=== PATIENT | male | born 1970 | race Caucasian/White ===

== ENCOUNTER 2021-01-13 16:41 | Emergency (ER) | payer SELFPAY ==
--- NOTE | 2021-01-13 17:44 | EDM.PDOC ---
ED HPI GENERAL MEDICAL PROBLEM - General Chief Complaint: Respiratory Problem Stated Complaint: LOW O2 SATS Time Seen by Provider: 01/13/21 17:31 Source of Information: Reports: Patient, RN Notes Reviewed History Limitations: Reports: No Limitations - History of Present Illness INITIAL COMMENTS - FREE TEXT/NARRATIVE: Patient is a 50-year-old male who presents to the ER for evaluation of his difficulty breathing. Patient notes he has been sick for about the past 9 days. States that he has a loss of appetite, feels generalized fatigue, cough shortness of breath, but no chest pain. States that he was checking his oxygen saturations at home, they were in the low 80s. They were as low as 86% when he initially presented to the ER and was put back in the room, but as he has been resting, they have been steady at 90 to 91% on room air. He is in no visible respiratory distress at this time. Patient was unvaccinated for COVID-19, and has not been tested for COVID-19 at this time. Patient is obese, but denies any other past medical history. - Related Data Allergies Allergy/AdvReac Type Severity Reaction Status Date / Time No Known Allergies Allergy Verified 01/13/21 16:56 Home Meds: Home Meds . [No Known Home Meds] 01/13/21 [History] Past Medical History Endocrine/Metabolic History: Reports: Obesity/BMI 30+ Social & Family History - Tobacco Use Tobacco Use Status *Q: Never Tobacco User - Caffeine Use Caffeine Use: Reports: Soda - Recreational Drug Use Recreational Drug Use: No ED ROS GENERAL - Review of Systems Review Of Systems: Comprehensive ROS is negative, except as noted in HPI. ED EXAM, GENERAL - Physical Exam Exam: See Below Exam Limited By: No Limitations General Appearance: Alert, WD/WN, No Apparent Distress Respiratory/Chest: No Respiratory Distress, Lungs Clear, Normal Breath Sounds, No Accessory Muscle Use, Chest Non-Tender Cardiovascular: Normal Peripheral Pulses, Regular Rate, Rhythm, No Edema GI/Abdominal: Normal Bowel Sounds, Soft, Non-Tender, No Distention, No Mass Extremities: Normal Inspection, Normal Capillary Refill Neurological: Alert, Oriented, Normal Cognition, No Motor/Sensory Deficits Psychiatric: Normal Affect, Normal Mood Skin Exam: Warm, Dry, Intact, Normal Color, No Rash Course - Vital Signs Last Recorded V/S: Last Vital Signs Temp 99 F 01/13/21 16:53 Pulse 105 H 01/13/21 16:53 Resp 20 01/13/21 16:53 BP 170/100 H 01/13/21 16:53 Pulse Ox 90 L 01/13/21 16:53 - Orders/Labs/Meds Orders: Active Orders 24 hr Category Date Time Status Peripheral IV Care [RC] . DIRECTED Care 01/13/21 18:37 Active Vital Signs [RC] Q15M Care 01/13/21 19:31 Active Chest 1V Frontal [CR] Stat Exams 01/13/21 16:44 Taken EPINEPHrine [Adrenalin] Med 01/13/21 19:31 Active 0.3 mg IM ASDIRECTED PRN Famotidine [Pepcid] Med 01/13/21 19:31 Active 20 mg IVPUSH ASDIRECTED PRN Sodium Chloride 0.9% [Saline Flush] Med 01/13/21 18:37 Active 10 ml FLUSH ASDIRECTED PRN Sodium Chloride 0.9% [Saline Flush] Med 01/13/21 19:45 Active 30 ml FLUSH ASDIRECTED diphenhydrAMINE [Benadryl] Med 01/13/21 19:31 Active 50 mg IVPUSH ASDIRECTED PRN methylPREDNISolone Sod Succ [Solu-MEDROL] Med 01/13/21 19:31 Active 125 mg IVPUSH ASDIRECTED PRN Peripheral IV Insertion Adult [OM.PC] Routine Oth 01/13/21 18:37 Ordered Medication Orders Diphenhydramine HCl (Diphenhydramine 50 Mg/Ml Sdv) 50 mg IVPUSH ASDIRECTED PRN PRN Reason: hypersensitivity reaction Epinephrine HCl (Epinephrine 1 Mg/Ml Sdv) 0.3 mg IM ASDIRECTED PRN PRN Reason: hypersensitivity reaction Famotidine (Famotidine 20 Mg/2 Ml Sdv) 20 mg IVPUSH ASDIRECTED PRN PRN Reason: hypersensitivity reaction Methylprednisolone Sodium Succinate (Methylprednisolone Sodium Succinate 125 Mg/2 Ml Sdv) 125 mg IVPUSH ASDIRECTED PRN PRN Reason: hypersensitivity reaction Sodium Chloride (Sodium Chloride 0.9% 10 Ml Syringe) 10 ml FLUSH ASDIRECTED PRN PRN Reason: Keep Vein Open Last Admin: 01/13/21 18:50 Dose: 10 ml Documented by: OMER Sodium Chloride (Sodium Chloride 0.9% 10 Ml Syringe) 30 ml FLUSH ASDIRECTED [facility] Labs: Laboratory Tests 01/13/21 01/13/21 01/13/21 Range/Units 16:58 18:50 18:50 WBC 3.51 L (4.23-9.07) K/mm3 RBC 5.01 (4.63-6.08) M/mm3 Hgb 14.3 (13.7-17.5) gm/dl Hct 44.3 (40.1-51.0) % MCV 88.4 (79.0-92.2) fl MCH 28.5 (25.7-32.2) pg MCHC 32.3 (32.2-35.5) g/dl RDW Std Deviation 45.2 H (35.1-43.9) fL Plt Count 199 (163-337) K/mm3 MPV 9.2 L (9.4-12.3) fl Neut % (Auto) 77.2 H (34.0-67.9) % Lymph % (Auto) 10.0 L (21.8-53.1) % [place] % (Auto) 12.8 H (5.3-12.2) % Eos % (Auto) 0 L (0.8-7.0) Baso % (Auto) 0.0 L (0.1-1.2) % Neut # (Auto) 2.71 (1.78-5.38) K/mm3 Lymph # (Auto) 0.35 L (1.32-3.57) K/mm3 [place] # (Auto) 0.45 (0.30-0.82) K/mm3 Eos # (Auto) 0.00 L (0.04-0.54) K/mm3 Baso # (Auto) 0.00 L (0.01-0.08) K/mm3 Sodium 135 L (136-145) mEq/L Potassium 3.9 (3.5-5.1) mEq/L Chloride 99 (98-107) mEq/L Carbon Dioxide 25 (21-32) mEq/L Anion Gap 14.9 (5-15) BUN 19 H (7-18) mg/dL Creatinine 1.1 (0.7-1.3) mg/dL Est Cr Clr Drug Dosing 86.22 mL/min Estimated GFR (MDRD) > 60 (>60) mL/min BUN/Creatinine Ratio 17.3 (14-18) Glucose 144 H (70-99) mg/dL Calcium 7.9 L (8.5-10.1) mg/dL Total Bilirubin 0.5 (0.2-1.0) mg/dL AST 66 H (15-37) U/L ALT 50 (16-63) U/L Alkaline Phosphatase 74 (46-116) U/L C-Reactive Protein 15.3 H* (<1.0) mg/dL Total Protein 7.2 (6.4-8.2) g/dl Albumin 3.1 L (3.4-5.0) g/dl Globulin 4.1 gm/dL Albumin/Globulin Ratio 0.8 L (1-2) SARS-CoV-2 RNA (ALBERT) Positive H (NEGATIVE) Meds: Medications Generic Name Dose Route Start Last Admin Trade Name Freq PRN Reason Stop Dose Admin Diphenhydramine HCl 50 mg 01/13/21 19:31 Diphenhydramine 50 Mg/Ml Sdv IVPUSH ASDIRECTED PRN hypersensitivity reaction Epinephrine HCl 0.3 mg 01/13/21 19:31 Epinephrine 1 Mg/Ml Sdv IM ASDIRECTED PRN hypersensitivity reaction Famotidine 20 mg 01/13/21 19:31 Famotidine 20 Mg/2 Ml Sdv IVPUSH ASDIRECTED PRN hypersensitivity reaction Methylprednisolone Sodium Succinate 125 mg 01/13/21 19:31 Methylprednisolone Sodium Succinate 125 Mg/2 Ml Sdv IVPUSH ASDIRECTED PRN hypersensitivity reaction Sodium Chloride 10 ml 01/13/21 18:37 01/13/21 18:50 Sodium Chloride 0.9% 10 Ml Syringe FLUSH 10 ml ASDIRECTED PRN Administration Keep Vein Open Sodium Chloride 30 ml 01/13/21 19:45 Sodium Chloride 0.9% 10 Ml Syringe FLUSH ASDIRECTED ALEX Discontinued Medications Generic Name Dose Route Start Last Admin Trade Name Freq PRN Reason Stop Dose Admin CASIRIVIMAB/IMDEVIMAB 10 ml/ 110 mls @ 220 mls/hr 01/13/21 19:31 Sodium Chloride IV 01/13/21 20:00 ONETIME ONE SOTROVIMAB 500 mg/ Sodium 108 mls @ 216 mls/hr 01/13/21 19:51 01/13/21 20:27 Chloride IV 01/13/21 20:20 216 mls/hr ONETIME ONE Administration - Re-Assessments/Exams Free Text/Narrative Re-Assessment/Exam: 01/13/21 17:43 Patient presents to the ER for evaluation of his [id number] illness. Covid swab was obtained at time of triage, along with a chest x-ray. We have been monitoring his O2 saturations, and they have been around 90 to 91% on room air at rest while he has been in the ER. We will go ahead and continue to monitor these patient would be a candidate for monoclonal antibody therapy should his Covid screen come back positive. I spoke with the patient to provide information about Regeneron treatment. I offered them the "Patient and caregiver EUA Regeneron fact sheet" to read and review. I stated that the drug has been approved by an emergency use authorization (EUA) process and has not been fully FDA reviewed or approved. The patient meets the EUA requirements. I discussed there are other potential treatment options that are currently not FDA approved to treat COVID-19. I did offer an opportunity to ask questions and all questions were answered. The patient voiced understanding and agreed to proceed with the treatment. 01/13/21 19:29 Patient CBC shows a mildly low white count which is typical for viral disease. CMP is fairly unremarkable, CRP is elevated at 12.1. 01/13/21 20:10 Was made aware by nursing staff that the patient was place on oxygen 2L [place]. We did take him back off O2 and his RA sats have been around 90-91%; we will go ahead with the monoclonal antibody therapy at this time. Departure - Departure Time of Disposition: 19:30 Disposition: Home, Self-Care 01 Condition: Good Clinical Impression: COVID-19 - Discharge Information *PRESCRIPTION DRUG MONITORING PROGRAM REVIEWED*: No *COPY OF PRESCRIPTION DRUG MONITORING REPORT IN PATIENT BECKA: No Instructions: COVID-19 Frequently Asked Questions, 10 Things You Can Do to Manage Your COVID-19 Symptoms at Home - [facility] (10/17/2020) Referrals: PCP,None [Primary Care Provider] - Forms: ED Department Discharge Additional Instructions: You were seen in the ER today for ongoing and/or worsening respiratory symptoms. Your chest x-ray showed no signs of pneumonia at this time. Your oxygen levels were acceptable at 91% on room air upon discharge from this ER. You were given IV monoclonal antibody therapy at today's visit, this medication is thought to work by making you a little less sick, and helps to decrease the length of time that you are sick. Please try to increase your oral fluid intake, and eat multiple small meals throughout the day, to keep yourself healthy. You need to keep yourself nourished in order to fight off this disease. You can try a liquid diet like gatorade/powerade as well to get your electrolytes. You may take 500 mg Tylenol every hours 6 hours for pain/fever relief. Do not exceed 4000 mg Tylenol in a 24-hour time span. However, running a fever is your body's natural response to illness, and it allows the body to develop antibodies to disease, we are recommending trying to limit the use of Tylenol as much as possible to allow your body's natural immune response. Recommend you obtain a pulse oximeter and monitor your oxygen levels at home, you should place the monitor on your finger, and sit in a calm, quiet position for a few minutes and then record the number that is on the screen. If this consistently below 90% on room air without movement, this would be cause for concern to come back to the hospital for further management of your COVID-19 disease. Please follow all guidance set forth from [facility], regarding isolation purposes for your disease process. General isolation times are 10 days from when you started being symptomatic. Sepsis Event Note (ED) - Evaluation Sepsis Screening Result: No Definite Risk - Focused Exam Vital Signs: Vital Signs Temp Pulse Resp BP Pulse Ox 01/13/21 16:53 99 F 105 H 20 170/100 H 90 L - My Orders Last 24 Hours: My Active Orders 01/13/21 16:44 Chest 1V Frontal [CR] Stat 01/13/21 18:37 Peripheral IV Care [RC] . DIRECTED Sodium Chloride 0.9% [Saline Flush] 10 ml FLUSH ASDIRECTED PRN Peripheral IV Insertion Adult [OM.PC] Routine 01/13/21 19:31 Vital Signs [RC] Q15M EPINEPHrine [Adrenalin] 0.3 mg IM ASDIRECTED PRN Famotidine [Pepcid] 20 mg IVPUSH ASDIRECTED PRN diphenhydrAMINE [Benadryl] 50 mg IVPUSH ASDIRECTED PRN methylPREDNISolone Sod Succ [Solu-MEDROL] 125 mg IVPUSH ASDIRECTED PRN 01/13/21 19:45 Sodium Chloride 0.9% [Saline Flush] 30 ml FLUSH ASDIRECTED - Assessment/Plan Last 24 Hours: My Active Orders 01/13/21 16:44 Chest 1V Frontal [CR] Stat 01/13/21 18:37 Peripheral IV Care [RC] . DIRECTED Sodium Chloride 0.9% [Saline Flush] 10 ml FLUSH ASDIRECTED PRN Peripheral IV Insertion Adult [OM.PC] Routine 01/13/21 19:31 Vital Signs [RC] Q15M EPINEPHrine [Adrenalin] 0.3 mg IM ASDIRECTED PRN Famotidine [Pepcid] 20 mg IVPUSH ASDIRECTED PRN diphenhydrAMINE [Benadryl] 50 mg IVPUSH ASDIRECTED PRN methylPREDNISolone Sod Succ [Solu-MEDROL] 125 mg IVPUSH ASDIRECTED PRN 01/13/21 19:45 Sodium Chloride 0.9% [Saline Flush] 30 ml FLUSH ASDIRECTED
[2021-01-13] MEDS ORDERED: Sodium Chloride 0.9% 10 ML Syringe FLUSH PRN (18:37)
[2021-01-13] MEDS ORDERED: methylPREDNISolone Sodium Succinate 125 MG/2 ML SDV IVPUSH PRN (19:31)
[2021-01-13] MEDS ORDERED: diphenhydrAMINE 50 MG/ML SDV IVPUSH PRN (19:31)
[2021-01-13] MEDS ORDERED: EPINEPHrine 1 MG/ML SDV IM PRN (19:31)
[2021-01-13] MEDS ORDERED: Famotidine 20 MG/2 ML SDV IVPUSH PRN (19:31)
[2021-01-13] MEDS ORDERED: Sodium Chloride 0.9% 10 ML Syringe FLUSH SCH (19:45)
--- NOTE | 2021-01-14 07:34 | CR ---
Chest: Frontal view of the chest was obtained. Comparison: No prior chest imaging is available. Heart size and mediastinum are normal. Minimal density within the left midlung is seen. Lungs otherwise are clear. Bony structures show nothing acute. Impression: 1. Minimal density with the left midlung. Difficult to exclude minimal area of pneumonia or an area of atelectasis. 2. Other portions of the frontal chest x-ray appear within normal limits. Diagnostic code #3
== END 2021-01-13 22:07 | disposition home or self-care (01) ==
LOC: JD.ED 16:41
DX: U07.1 COVID-19 (principal)
CPT/HCPCS: 36415; 71045; 80053; 85025; 86140; 87635; 99285; M0247; Q0247; U0002

== ENCOUNTER 2021-01-14 09:13 | Emergency (ER) | payer SELFPAY ==
--- NOTE | 2021-01-14 09:58 | EDM.PDOC ---
ED HPI GENERAL MEDICAL PROBLEM - General Chief Complaint: Respiratory Problem Stated Complaint: SOB Time Seen by Provider: 01/14/21 09:31 Source of Information: Reports: Patient History Limitations: Reports: No Limitations - History of Present Illness INITIAL COMMENTS - FREE TEXT/NARRATIVE: 50-year-old male presents the emergency department with complaints of increased shortness of breath and low O2 saturations. Patient was seen in the emergency department yesterday with Covid positive symptoms and shortness of breath. He did receive monoclonal antibodies while in the emergency department. He states he went home. States that overall his symptoms have resolved. He denies any generalized body aches, headache, nausea, vomiting or diarrhea. He states his appetite is resolving. However he states he is feeling more short of breath. Checked his oxygen saturations at home and they were in the 70s so he elected to come to the emergency department. Of note, the patient is not a smoker. He states he has no past medical history. He does not have a primary care provider. He did not receive his Covid vaccinations. - Related Data Allergies Allergy/AdvReac Type Severity Reaction Status Date / Time No Known Allergies Allergy Verified 01/14/21 09:33 Home Meds: Home Meds dexAMETHasone [Dexamethasone] 6 mg PO DAILY #14 tablet 01/14/21 [Rx] Past Medical History Endocrine/Metabolic History: Reports: Obesity/BMI 30+ - Infectious Disease History Infectious Disease History: Reports: Novel Coronavirus Social & Family History - Tobacco Use Tobacco Use Status *Q: Never Tobacco User - Caffeine Use Caffeine Use: Reports: Soda ED ROS GENERAL - Review of Systems Review Of Systems: Comprehensive ROS is negative, except as noted in HPI. ED EXAM, GENERAL - Physical Exam Exam: See Below Exam Limited By: No Limitations General Appearance: Alert, WD/WN, No Apparent Distress Ears: Normal External Exam, Hearing Grossly Normal Nose: Normal Inspection Throat/Mouth: Normal Inspection, Normal Lips, Normal Voice, No Airway Compromise Head: Atraumatic Neck: Normal Inspection, Supple Respiratory/Chest: No Accessory Muscle Use, Chest Non-Tender, Respiratory Distress, Decreased Breath Sounds, Crackles (Crackles noted to the bilateral bases) Cardiovascular: Normal Peripheral Pulses, Regular Rate, Rhythm, No Edema, No Murmur Peripheral Pulses: 2+: Radial (L), Radial (R) GI/Abdominal: Normal Bowel Sounds, Soft, Non-Tender, No Distention (Male) Exam: Deferred Rectal (Males) Exam: Deferred Back Exam: Normal Inspection Extremities: Normal Inspection Neurological: Alert, Oriented, Normal Cognition Psychiatric: Normal Affect, Normal Mood Skin Exam: Warm, Dry, Intact, Normal Color, No Rash Lymphatic: No Adenopathy Course - Vital Signs Text/Narrative:: As stated above, patient presents with decreasing O2 saturations as a result of Covid. He did receive monoclonal antibodies yesterday while in the emergency department. Patient's O2 saturations in the emergency department on room air were 77%. Nursing staff did apply O2 at 5 L per nasal cannula and O2 saturations are now 92 to 93%. Physical exam reveals diminished lung sounds with fine crackles noted to the bilateral bases. Exam is otherwise unremarkable. Will obtain lab studies to include CBC, CMP, magnesium, D-dimer and a C-reactive protein. We will repeat chest x-ray. Last Recorded V/S: Last Vital Signs Temp 98.2 F 01/14/21 09:30 Pulse 97 01/14/21 09:30 Resp 24 H 01/14/21 09:30 BP 134/81 01/14/21 09:30 Pulse Ox 77 L 01/14/21 09:30 - Orders/Labs/Meds Labs: Laboratory Tests 01/14/21 01/14/21 01/14/21 Range/Units 10:15 10:15 10:15 WBC 4.34 (4.23-9.07) K/mm3 RBC 4.89 (4.63-6.08) M/mm3 Hgb 14.1 (13.7-17.5) gm/dl Hct 43.3 (40.1-51.0) % MCV 88.5 (79.0-92.2) fl MCH 28.8 (25.7-32.2) pg MCHC 32.6 (32.2-35.5) g/dl RDW Std Deviation 45.6 H (35.1-43.9) fL Plt Count 223 (163-337) K/mm3 MPV 9.0 L (9.4-12.3) fl Neut % (Auto) 78.2 H (34.0-67.9) % Lymph % (Auto) 8.5 L (21.8-53.1) % [place] % (Auto) 13.1 H (5.3-12.2) % Eos % (Auto) 0 L (0.8-7.0) Baso % (Auto) 0.0 L (0.1-1.2) % Neut # (Auto) 3.39 (1.78-5.38) K/mm3 Lymph # (Auto) 0.37 L (1.32-3.57) K/mm3 [place] # (Auto) 0.57 (0.30-0.82) K/mm3 Eos # (Auto) 0.00 L (0.04-0.54) K/mm3 Baso # (Auto) 0.00 L (0.01-0.08) K/mm3 D-Dimer, Quantitative 0.57 H (0.19-0.50) mg/L Sodium 131 L (136-145) mEq/L Potassium 3.8 (3.5-5.1) mEq/L Chloride 96 L (98-107) mEq/L Carbon Dioxide 25 (21-32) mEq/L Anion Gap 13.8 (5-15) BUN 19 H (7-18) mg/dL Creatinine 1.0 (0.7-1.3) mg/dL Est Cr Clr Drug Dosing TNP Estimated GFR (MDRD) > 60 (>60) mL/min BUN/Creatinine Ratio 19.0 H (14-18) Glucose 157 H (70-99) mg/dL Calcium 7.6 L (8.5-10.1) mg/dL Magnesium 2.0 (1.8-2.4) mg/dL Total Bilirubin 0.5 (0.2-1.0) mg/dL AST 92 H (15-37) U/L ALT 67 H (16-63) U/L Alkaline Phosphatase 75 (46-116) U/L C-Reactive Protein 17.8 H* (<1.0) mg/dL Total Protein 7.0 (6.4-8.2) g/dl Albumin 3.0 L (3.4-5.0) g/dl Globulin 4.0 gm/dL Albumin/Globulin Ratio 0.8 L (1-2) Meds: Medications Discontinued Medications Generic Name Dose Route Start Last Admin Trade Name Freq PRN Reason Stop Dose Admin Dexamethasone 6 mg 01/14/21 11:14 Dexamethasone 4 Mg Tab PO 01/14/21 11:15 ONETIME ONE - Re-Assessments/Exams Free Text/Narrative Re-Assessment/Exam: 01/14/21 11:01 Radiologist impression frontal view of the chest: 1. Mild areas of increased density within both lungs most likely due to stable Covid pneumonia. 2. Minimal atelectasis within the left midlung. 01/14/21 11:04 Hematology reveals a WBC of 4.34, hemoglobin 14.1, hematocrit 43.3, platelet cou nt 233 Coagulation reveals a D-dimer of 0.57 Chemistry reveals a sodium of 131, potassium 3.8, chloride 96, anion gap 13.8, BUN 19, creatinine 1.0, glucose 157, calcium 7.6, AST 92, ALT 67, C-reactive protein 17.8 Patient will be sent home on home oxygen. I did discuss the case with Dr. Palacios, our hospitalist, and he recommends sending the patient home on dexamethasone 10-day course as well. 01/14/21 11:24 Discussed this plan with the patient and he is agreeable. Departure - Departure Time of Disposition: 11:25 Disposition: Home, Self-Care 01 Condition: Good Clinical Impression: COVID-19, Hypoxemia, Pneumonia due to COVID-19 virus - Discharge Information Prescriptions: dexAMETHasone [Dexamethasone] 6 mg PO DAILY #14 tablet Referrals: PCP,None [Primary Care Provider] - Forms: ED Department Discharge Additional Instructions: You were seen in the ER today for evaluation of low oxygen levels due to Covid. Lab studies were essentially unremarkable however your inflammatory markers were elevated. Your oxygen levels did improve with oxygen. Chest x-ray does show pneumonia consistent with Covid however as discussed this is viral and cannot be treated with antibiotics. You were given a steroid medication while in the emergency department to decrease inflammation associated with the Covid virus. I have sent a prescription for this medication called dexamethasone to [facility]. You will need to take 6 mg daily starting tomorrow for 9 days. You will also need to follow-up with a primary care provider once your 10 days of isolation have been completed. They will reevaluate your oxygen needs. A list of providers has been sent with your discharge papers. Call to schedule your appointment today. Should your condition worsen or change, do not hesitate returning to the emergency department. Sepsis Event Note (ED) - Evaluation Sepsis Screening Result: No Definite Risk - Focused Exam Vital Signs: Vital Signs Temp Pulse Resp BP Pulse Ox 01/14/21 09:30 98.2 F 97 24 H 134/81 77 L
--- NOTE | 2021-01-14 10:27 | CR ---
Chest: Frontal view of the chest was obtained. Comparison: Prior chest x-ray of 01/13/21. Slight density is noted within the right lung base as well as minimal density within the right upper lung. Density is also noted within the left mid lung. Findings are felt to be fairly stable from prior exam. Minimal atelectasis is seen within the left mid lung peripherally. Heart size and mediastinum are normal. Bony structures are unchanged. Impression: 1. Mild areas of increased density within both lungs most likely due to stable COVID pneumonia. 2. Minimal atelectasis within the left midlung. Diagnostic code #3
[2021-01-14] MEDS ORDERED: Dexamethasone 4 MG Tab PO ONE (11:14)
== END 2021-01-14 12:30 | disposition home or self-care (01) ==
LOC: JD.ED 09:13
DX: U07.1 COVID-19 (principal); J12.82 Pneumonia due to coronavirus disease 2019; R09.02 Hypoxemia; E66.9 Obesity, unspecified
CPT/HCPCS: 36415; 71045; 80053; 83735; 85025; 85379; 86140; 99285; J8540

== ENCOUNTER 2021-01-22 11:41 | Inpatient (IN) | payer SELFPAY ==
[2021-01-22] MEDS ORDERED: FLU Vacc QS2021-22 36MOS UP/PF 60 MCG/0.5 ML Syringe IM ONE (12:30)
[2021-01-22] MEDS ORDERED: Ondansetron 4 MG/2 ML SDV IV PRN (13:31)
[2021-01-22] MEDS ORDERED: Acetaminophen 325 MG Tab PO PRN (13:31)
--- NOTE | 2021-01-22 13:44 | PCM.HP.2 ---
H&P History of Present Illness - General Date of Service: 01/22/21 Admit Problem/Dx: Admission Diagnosis/Problem Admission Diagnosis/Problem Hypoxia - History of Present Illness Initial Comments - Free Text/Narative: 50-year-old male who first presented to the emergency department on January 13 with 9 days of symptoms of shortness of breath and fatigue was diagnosed with COVID-19 and given monoclonal antibodies. He did return on the to the emergency department and had worsening shortness of breath. He denied any fever, chills, nausea, vomiting, body aches, or headache. Denied any changes in bowels. On the he was found to be hypoxemic with saturations in the 70s and he was started on 5 L of oxygen via nasal cannula. He was started on dexamethasone and sent home on oxygen because we did not have any room in the hospital. Patient presented today to the Covid clinic with worsening shortness of breath and fatigue. No other symptoms, but he did state his oxygen saturations have been as low as the 70s over the last week. He was found to have an oxygen saturation of 85% on 5 L and arrangements were made to admit the patient to the hospital. When he arrived at the floor he was put on high flow nasal cannula with a flow rate of 45 L at 60% FiO2. Patient states he is feeling better with the high flow nasal cannula. Patient also had a CTA of the chest because of worsening D-dimer. CT of the chest showed worsening parenchymal densities within both sides of the chest compatible with worsening COVID pneumonia. No pulmonary embolism seen. Laboratory findings in the emergency department included WBC of 19, hemoglobin 15.6, platelets 589, D-dimer 1.1, sodium 134, potassium 4.8, bicarb 25, BUN 24, creatinine 1.0, glucose 208, ferritin 2547, AST 39, ALT 142, C-reactive protein 13.9, albumin 2.5 - Related Data Allergies/Adverse Reactions: Allergies Allergy/AdvReac Type Severity Reaction Status Date / Time No Known Allergies Allergy Verified 01/22/21 12:01 Home Medications: Home Meds dexAMETHasone [Dexamethasone] 6 mg PO DAILY #14 tablet 01/14/21 [Rx] Past Medical History Neurological History: Reports: Migraines Endocrine/Metabolic History: Reports: Obesity/BMI 30+ - Infectious Disease History Infectious Disease History: Reports: Novel Coronavirus Social & Family History - Tobacco Use Tobacco Use Status *Q: Never Tobacco User - Caffeine Use Caffeine Use: Reports: Soda - Recreational Drug Use Recreational Drug Use: No H&P Review of Systems - Review of Systems: Review Of Systems: Comprehensive ROS is negative, except as noted in HPI. Exam - Exam Exam: See Below - Vital Signs Vital Signs: Last Vital Signs Temp 98.2 F 01/22/21 11:56 Pulse 103 H 01/22/21 11:56 Resp 22 H 01/22/21 11:56 BP 113/80 01/22/21 11:56 Pulse Ox 93 L 01/22/21 12:12 Weight: 212 lb 3.2 oz - Exam Quality Assessment: Supplemental Oxygen General: Alert, Oriented, 4 HEENT: Conjunctiva Clear, EOMI, Hearing Intact, Mucosa Moist & [place] Neck: Supple, Trachea Midline, 2 Lungs: Crackles (Throughout both lung linares worse in the bases). No: Normal Respiratory Effort (Increased respiratory rate) Cardiovascular: Regular Rhythm, Tachycardia GI/Abdominal Exam: Normal Bowel Sounds, Soft, Non-Tender, No Organomegaly, No Distention, No Abnormal Bruit, No Mass Extremities: Normal Inspection, Normal Range of Motion, Non-Tender, No Pedal Edema, Normal Capillary Refill Skin: Warm, Dry, Intact Neuro Extensive - Mental Status: Alert, Oriented x3, Normal Mood/Affect, Normal Cognition, Memory Intact Neuro Extensive - Motor, Sensory, Reflexes: CN II-XII Intact Psychiatric: Alert, Normal Affect, Normal Mood Sepsis Event Note - Evaluation Sepsis Screening Result: No Definite Risk - Focused Exam Vital Signs: Vital Signs Temp Pulse Resp BP Pulse Ox Pulse Ox 01/22/21 12:12 93 L 01/22/21 11:56 98.2 F 103 H 22 H 113/80 89 L - Problem List (1) Hypoxemia SNOMED Code(s): 481295148 ICD Code: R09.02 - HYPOXEMIA Status: Acute Current Visit: No (2) Pneumonia due to COVID-19 virus SNOMED Code(s): 211439598517993901 ICD Code: U07.1 - COVID-19; J12.82 - PNEUMONIA DUE TO CORONAVIRUS DISEASE 2019 Status: Acute Current Visit: No Problem List Initiated/Reviewed/Updated: Yes Orders Last 24hrs: Active Orders 24 hr Category Date Time Status Patient Status [ADT] Routine ADT 01/22/21 12:09 Active Incentive Spirometry [RT Incentive Spirometry] [RC] Care 01/22/21 12:12 Active ASDIRECTED Oxygen Therapy [RC] PRN Care 01/22/21 13:32 Ordered Up With Assistance [RC] ASDIRECTED Care 01/22/21 13:31 Ordered VTE/DVT Education [RC] PER UNIT ROUTINE Care 01/22/21 13:32 Ordered Vaccine to be Administered/Admin Charge [RC] ASDIRECTED Care 01/22/21 12:23 Active Vital Signs [RC] Q4H Care 01/22/21 13:32 Ordered Respiratory Care Assess and Treatment [CONS] Routine Cons 01/22/21 13:31 Ordered Regular Diet [DIET] Diet 01/22/21 Dinner Ordered C-REACTIVE PROTEIN [CHEM] AM Lab 01/23/21 05:11 Ordered CBC WITH AUTO DIFF [HEME] AM Lab 01/23/21 05:11 Ordered CMP [COMPREHENSIVE METABOLIC PN,CMP] [CHEM] AM Lab 01/23/21 05:11 Ordered DD [D-DIMER QUANTITATIVE] [COAG] AM Lab 01/23/21 05:11 Ordered MAGNESIUM [CHEM] AM Lab 01/23/21 05:11 Ordered PHOSPHORUS [CHEM] AM Lab 01/23/21 05:11 Ordered Acetaminophen [TylenoL] Med 01/22/21 13:31 Ordered 650 mg PO Q4H PRN Enoxaparin [Lovenox] Med 01/23/21 09:00 Ordered 40 mg SUBCUT DAILY Ondansetron [Zofran] Med 01/22/21 13:31 Ordered 4 mg IV Q6H PRN dexAMETHasone Med 01/22/21 13:45 Ordered 6 mg PO Q24H Resuscitation Status Routine Resus Stat 01/22/21 13:31 Ordered Medication Orders Acetaminophen (Acetaminophen 325 Mg Tab) 650 mg PO Q4H PRN PRN Reason: Pain (Mild 1-3)/fever Dexamethasone (Dexamethasone 4 Mg Tab) 6 mg PO Q24H ALEX Stop: 01/24/21 13:46 Enoxaparin Sodium (Enoxaparin 40 Mg/0.4 Ml Syringe) 40 mg SUBCUT DAILY ALEX Ondansetron HCl (Ondansetron 4 Mg/2 Ml Sdv) 4 mg IV Q6H PRN PRN Reason: Nausea/Vomiting Assessment/Plan Comment:: 50-year-old male with 10+ day history of shortness of breath and COVID-19. COVID-19 pneumonia Respiratory failure * Symptoms first started approximately on January 04 * Given monoclonal antibodies on January 13 * Sent home on 5 L of oxygen per minute and dexamethasone on January 14 * Returns today with low oxygen saturations while on 5 L/min of oxygen and dexamethasone. * WBC of 19, hemoglobin 15.6, platelets 589, D-dimer 1.1, CRP 13.9, alb 2.5 * He is outside the window of benefit for remdesivir. * Currently on high flow nasal cannula 45 L at 60% FiO2 * No prior medical problems and a non-smoker. * Leukocytosis likely secondary to steroid effect. CTA did not demonstrate any consolidated areas suggestive of bacterial infection * Thrombocytosis likely inflammatory reaction Plan * Admit to medical floor * Continue dexamethasone * Offer Actemra * High flow nasal cannula to keep SPO2 between 88 and 94% * Routine COVID-19 treatment to include albuterol, DuoNeb, I-S, proning, respiratory therapy * Follow CBC, CMP, mag, Phos, CRP, and D-dimer * VTE prophylaxis with Lovenox * CODE STATUS: Full code - Mortality Measure Prognosis:: Good
[2021-01-22] MEDS ORDERED: Benzonatate 100 MG Cap PO PRN (14:17)
[2021-01-22] MEDS ORDERED: Acetaminophen/Codeine 300-30 MG Tab PO PRN (14:17)
[2021-01-22] MEDS: Dexamethasone 4 MG Tab PO SCH (14:31)
--- NOTE | 2021-01-22 17:53 | PCM.EKG ---
#1 Interpretation EKG Date: 01/22/21 Time: 16:29 Rhythm: NSR Rate (Beats/Min): 91 [place]: Normal P-Wave: Present QRS: Normal ST-T: Normal QT: Normal Comparison: NA - No Prior EKG (Normal EKG)
[2021-01-22] MEDS: Albuterol/Ipratropium 3.0-0.5 MG/3 ML Neb Soln NEB PRN (20:30)
[2021-01-23] MEDS: Enoxaparin 40 MG/0.4 ML Syringe SUBCUT SCH (09:17)
[2021-01-23] MEDS ORDERED: Insulin Lispro 100 Unit/ML 3 ML KwikPen SUBCUT PRN (10:22)
[2021-01-23] MEDS: Dexamethasone 4 MG Tab PO SCH (15:01)
--- NOTE | 2021-01-23 15:54 | PCM.PN ---
- General Info Date of Service: 01/23/21 Admission Dx/Problem (Free Text): Admission Diagnosis/Problem Admission Diagnosis/Problem Hypoxia Subjective Update: Patient is feeling much better. He has his appetite back and is less short of breath. Functional Status: Reports: Pain Controlled - Review of Systems General: Reports: No Symptoms HEENT: Reports: No Symptoms Pulmonary: Reports: No Symptoms Cardiovascular: Reports: No Symptoms Gastrointestinal: Reports: No Symptoms Musculoskeletal: Reports: No Symptoms - Patient Data Vitals - Most Recent: Last Vital Signs Temp 97.5 F 01/23/21 12:36 Pulse 86 01/23/21 12:36 Resp 22 H 01/23/21 12:36 BP 116/74 01/23/21 12:36 Pulse Ox 92 L 01/23/21 15:25 Weight - Most Recent: 213 lb 6.4 oz I&O - Last 24 Hours: Intake & Output 01/23/21 01/23/21 01/23/21 06:59 14:59 22:59 Intake Total 700 120 Output Total 1600 Balance -900 120 Lab Results Last 24 Hours: Laboratory Results - last 24 hr 01/23/21 01/23/21 01/23/21 Range/Units 06:34 06:34 06:34 WBC 12.20 H (4.23-9.07) K/mm3 RBC 4.76 (4.63-6.08) M/mm3 Hgb 13.6 L D (13.7-17.5) gm/dl Hct 42.4 (40.1-51.0) % MCV 89.1 (79.0-92.2) fl MCH 28.6 (25.7-32.2) pg MCHC 32.1 L (32.2-35.5) g/dl RDW Std Deviation 44.1 H (35.1-43.9) fL Plt Count 446 H D (163-337) K/mm3 MPV 9.4 (9.4-12.3) fl Neut % (Auto) 86.9 H (34.0-67.9) % Lymph % (Auto) 4.8 L (21.8-53.1) % [place] % (Auto) 7.0 (5.3-12.2) % Eos % (Auto) 0.2 L (0.8-7.0) Baso % (Auto) 0.1 (0.1-1.2) % Neut # (Auto) 10.60 H (1.78-5.38) K/mm3 Lymph # (Auto) 0.59 L (1.32-3.57) K/mm3 [place] # (Auto) 0.86 H (0.30-0.82) K/mm3 Eos # (Auto) 0.02 L (0.04-0.54) K/mm3 Baso # (Auto) 0.01 (0.01-0.08) K/mm3 D-Dimer, Quantitative 0.92 H (0.19-0.50) mg/L Sodium 132 L (136-145) mEq/L Potassium 4.2 (3.5-5.1) mEq/L Chloride 100 (98-107) mEq/L Carbon Dioxide 24 (21-32) mEq/L Anion Gap 12.2 (5-15) BUN 24 H (7-18) mg/dL Creatinine 0.8 (0.7-1.3) mg/dL Est Cr Clr Drug Dosing 125.58 mL/min Estimated GFR (MDRD) > 60 (>60) mL/min BUN/Creatinine Ratio 30.0 H (14-18) Glucose 253 H (70-99) mg/dL POC Glucose (70-99) mg/dL Hemoglobin A1c ( - 5.6) % Calcium 8.1 L (8.5-10.1) mg/dL Phosphorus 3.8 (2.6-4.7) mg/dL Magnesium 2.5 H (1.8-2.4) mg/dL Total Bilirubin 0.5 (0.2-1.0) mg/dL AST 25 (15-37) U/L ALT 115 H (16-63) U/L Alkaline Phosphatase 81 (46-116) U/L C-Reactive Protein 18.3 H* (<1.0) mg/dL Total Protein 6.3 L (6.4-8.2) g/dl Albumin 2.1 L (3.4-5.0) g/dl Globulin 4.2 gm/dL Albumin/Globulin Ratio 0.5 L (1-2) 01/23/21 01/23/21 Range/Units 06:34 11:56 WBC (4.23-9.07) K/mm3 RBC (4.63-6.08) M/mm3 Hgb (13.7-17.5) gm/dl Hct (40.1-51.0) % MCV (79.0-92.2) fl MCH (25.7-32.2) pg MCHC (32.2-35.5) g/dl RDW Std Deviation (35.1-43.9) fL Plt Count (163-337) K/mm3 MPV (9.4-12.3) fl Neut % (Auto) (34.0-67.9) % Lymph % (Auto) (21.8-53.1) % [place] % (Auto) (5.3-12.2) % Eos % (Auto) (0.8-7.0) Baso % (Auto) (0.1-1.2) % Neut # (Auto) (1.78-5.38) K/mm3 Lymph # (Auto) (1.32-3.57) K/mm3 [place] # (Auto) (0.30-0.82) K/mm3 Eos # (Auto) (0.04-0.54) K/mm3 Baso # (Auto) (0.01-0.08) K/mm3 D-Dimer, Quantitative (0.19-0.50) mg/L Sodium (136-145) mEq/L Potassium (3.5-5.1) mEq/L Chloride (98-107) mEq/L Carbon Dioxide (21-32) mEq/L Anion Gap (5-15) BUN (7-18) mg/dL Creatinine (0.7-1.3) mg/dL Est Cr Clr Drug Dosing mL/min Estimated GFR (MDRD) (>60) mL/min BUN/Creatinine Ratio (14-18) Glucose (70-99) mg/dL POC Glucose 450 H* (70-99) mg/dL Hemoglobin A1c 8.0 H ( - 5.6) % Calcium (8.5-10.1) mg/dL Phosphorus (2.6-4.7) mg/dL Magnesium (1.8-2.4) mg/dL Total Bilirubin (0.2-1.0) mg/dL AST (15-37) U/L ALT (16-63) U/L Alkaline Phosphatase (46-116) U/L C-Reactive Protein (<1.0) mg/dL Total Protein (6.4-8.2) g/dl Albumin (3.4-5.0) g/dl Globulin gm/dL Albumin/Globulin Ratio (1-2) Med Orders - Current: Current Medications Acetaminophen (Acetaminophen 325 Mg Tab) 650 mg PO Q4H PRN PRN Reason: Pain (Mild 1-3)/fever Acetaminophen/Codeine Phosphate (Acetaminophen/Codeine 300-30 Mg Tab) 1 tab PO Q4H PRN PRN Reason: Cough Albuterol (Albuterol 6.7 Gm Inhaler) 0 gm INH Q2H PRN PRN Reason: sob/wheezing Albuterol/Ipratropium (Albuterol/Ipratropium 3.0-0.5 Mg/3 Ml Neb Soln) 3 ml NEB Q4HRRT PRN PRN Reason: sob/wheezing Last Admin: 01/22/21 20:30 Dose: 3 ml Documented by: Benzonatate (Benzonatate 100 Mg Cap) 200 mg PO Q8H PRN PRN Reason: Cough Dexamethasone (Dexamethasone 4 Mg Tab) 6 mg PO Q24H ALEX Stop: 01/24/21 14:01 Last Admin: 01/23/21 15:01 Dose: 6 mg Documented by: Enoxaparin Sodium (Enoxaparin 40 Mg/0.4 Ml Syringe) 40 mg SUBCUT DAILY [facility] Last Admin: 01/23/21 09:17 Dose: 40 mg Documented by: Insulin Human Lispro (Insulin Lispro 100 Unit/Ml 3 Ml Kwikpen) 0 unit SUBCUT QIDACANDBED [facility]; Protocol Ondansetron HCl (Ondansetron 4 Mg/2 Ml Sdv) 4 mg IV Q6H PRN PRN Reason: Nausea/Vomiting Discontinued Medications Tocilizumab 800 mg/ Sodium (Chloride) 100 mls @ 100 mls/hr IV ONETIME ONE Stop: 01/23/21 10:59 Last Admin: 01/23/21 11:49 Dose: 100 mls/hr Documented by: Influenza Virus Vaccine (Flu Vacc [id number] 36mos Up/Pf 60 Mcg/0.5 Ml Syringe) 60 mcg IM .ONCE ONE Stop: 01/22/21 12:31 Insulin Human Lispro (Insulin Lispro 100 Unit/Ml 3 Ml Kwikpen) 0 unit SUBCUT QIDACANDBED PRN; Protocol PRN Reason: Hyperglycemia Last Admin: 01/23/21 12:17 Dose: 12 unit Documented by: - Exam Quality Assessment: Supplemental Oxygen General: Alert, Oriented HEENT: Pupils Equal, Mucous Membr. Moist/[place] Lungs: Crackles (Bibasilar). No: Normal Respiratory Effort (Increased respiratory rate) Cardiovascular: Regular Rate, Regular Rhythm GI/Abdominal Exam: Normal Bowel Sounds, Soft, Non-Tender, No Distention Extremities: Normal Inspection, Normal Range of Motion, Non-Tender, No Pedal Edema, Normal Capillary Refill Skin: Warm, Dry, Intact Psy/Mental Status: Alert, Normal Affect, Normal Mood - Patient Data Lab Results Last 24 hrs: Laboratory Results - last 24 hr 01/23/21 01/23/21 01/23/21 Range/Units 06:34 06:34 06:34 WBC 12.20 H (4.23-9.07) K/mm3 RBC 4.76 (4.63-6.08) M/mm3 Hgb 13.6 L D (13.7-17.5) gm/dl Hct 42.4 (40.1-51.0) % MCV 89.1 (79.0-92.2) fl MCH 28.6 (25.7-32.2) pg MCHC 32.1 L (32.2-35.5) g/dl RDW Std Deviation 44.1 H (35.1-43.9) fL Plt Count 446 H D (163-337) K/mm3 MPV 9.4 (9.4-12.3) fl Neut % (Auto) 86.9 H (34.0-67.9) % Lymph % (Auto) 4.8 L (21.8-53.1) % [place] % (Auto) 7.0 (5.3-12.2) % Eos % (Auto) 0.2 L (0.8-7.0) Baso % (Auto) 0.1 (0.1-1.2) % Neut # (Auto) 10.60 H (1.78-5.38) K/mm3 Lymph # (Auto) 0.59 L (1.32-3.57) K/mm3 [place] # (Auto) 0.86 H (0.30-0.82) K/mm3 Eos # (Auto) 0.02 L (0.04-0.54) K/mm3 Baso # (Auto) 0.01 (0.01-0.08) K/mm3 D-Dimer, Quantitative 0.92 H (0.19-0.50) mg/L Sodium 132 L (136-145) mEq/L Potassium 4.2 (3.5-5.1) mEq/L Chloride 100 (98-107) mEq/L Carbon Dioxide 24 (21-32) mEq/L Anion Gap 12.2 (5-15) BUN 24 H (7-18) mg/dL Creatinine 0.8 (0.7-1.3) mg/dL Est Cr Clr Drug Dosing 125.58 mL/min Estimated GFR (MDRD) > 60 (>60) mL/min BUN/Creatinine Ratio 30.0 H (14-18) Glucose 253 H (70-99) mg/dL POC Glucose (70-99) mg/dL Hemoglobin A1c ( - 5.6) % Calcium 8.1 L (8.5-10.1) mg/dL Phosphorus 3.8 (2.6-4.7) mg/dL Magnesium 2.5 H (1.8-2.4) mg/dL Total Bilirubin 0.5 (0.2-1.0) mg/dL AST 25 (15-37) U/L ALT 115 H (16-63) U/L Alkaline Phosphatase 81 (46-116) U/L C-Reactive Protein 18.3 H* (<1.0) mg/dL Total Protein 6.3 L (6.4-8.2) g/dl Albumin 2.1 L (3.4-5.0) g/dl Globulin 4.2 gm/dL Albumin/Globulin Ratio 0.5 L (1-2) 01/23/21 01/23/21 Range/Units 06:34 11:56 WBC (4.23-9.07) K/mm3 RBC (4.63-6.08) M/mm3 Hgb (13.7-17.5) gm/dl Hct (40.1-51.0) % MCV (79.0-92.2) fl MCH (25.7-32.2) pg MCHC (32.2-35.5) g/dl RDW Std Deviation (35.1-43.9) fL Plt Count (163-337) K/mm3 MPV (9.4-12.3) fl Neut % (Auto) (34.0-67.9) % Lymph % (Auto) (21.8-53.1) % [place] % (Auto) (5.3-12.2) % Eos % (Auto) (0.8-7.0) Baso % (Auto) (0.1-1.2) % Neut # (Auto) (1.78-5.38) K/mm3 Lymph # (Auto) (1.32-3.57) K/mm3 [place] # (Auto) (0.30-0.82) K/mm3 Eos # (Auto) (0.04-0.54) K/mm3 Baso # (Auto) (0.01-0.08) K/mm3 D-Dimer, Quantitative (0.19-0.50) mg/L Sodium (136-145) mEq/L Potassium (3.5-5.1) mEq/L Chloride (98-107) mEq/L Carbon Dioxide (21-32) mEq/L Anion Gap (5-15) BUN (7-18) mg/dL Creatinine (0.7-1.3) mg/dL Est Cr Clr Drug Dosing mL/min Estimated GFR (MDRD) (>60) mL/min BUN/Creatinine Ratio (14-18) Glucose (70-99) mg/dL POC Glucose 450 H* (70-99) mg/dL Hemoglobin A1c 8.0 H ( - 5.6) % Calcium (8.5-10.1) mg/dL Phosphorus (2.6-4.7) mg/dL Magnesium (1.8-2.4) mg/dL Total Bilirubin (0.2-1.0) mg/dL AST (15-37) U/L ALT (16-63) U/L Alkaline Phosphatase (46-116) U/L C-Reactive Protein (<1.0) mg/dL Total Protein (6.4-8.2) g/dl Albumin (3.4-5.0) g/dl Globulin gm/dL Albumin/Globulin Ratio (1-2) Result Diagrams: 01/23/21 06:34 01/23/21 06:34 Sepsis Event Note - Evaluation Sepsis Screening Result: No Definite Risk - Focused Exam Vital Signs: Vital Signs Temp Pulse Resp BP Pulse Ox Pulse Ox 01/23/21 15:25 92 L 01/23/21 12:36 97.5 F 86 22 H 116/74 91 L 01/23/21 09:53 91 L 01/23/21 07:55 97.3 F 67 16 111/76 90 L 01/23/21 04:03 97.9 F 62 20 116/76 92 L - Problem List & Annotations (1) Hypoxemia SNOMED Code(s): 663137139 Code(s): R09.02 - HYPOXEMIA Status: Acute Current Visit: No (2) Pneumonia due to COVID-19 virus SNOMED Code(s): 861054073784238686 Code(s): U07.1 - COVID-19; J12.82 - PNEUMONIA DUE TO CORONAVIRUS DISEASE 2019 Status: Acute Current Visit: No - Problem List Review Problem List Initiated/Reviewed/Updated: Yes - My Orders Last 24 Hours: My Active Orders 01/23/21 09:00 Enoxaparin [Lovenox] 40 mg SUBCUT DAILY 01/23/21 10:22 Blood Glucose Check, Bedside [RC] WITHMEALSANDBED 01/23/21 Lunch Consistent Carbohydrate Diet [DIET] 01/23/21 12:43 Diabetes Education [RC] DAILY Consult to Diabetic Nurse Specialist [CONS] Stat 01/23/21 17:00 Insulin Lispro [HumaLOG] 0 unit SUBCUT QIDACANDBED - Plan Plan:: 50-year-old male with 10+ day history of shortness of breath and COVID-19. COVID-19 pneumonia Respiratory failure * Symptoms first started approximately on January 04 * Given monoclonal antibodies on January 13 * Sent home on 5 L of oxygen per minute and dexamethasone on January 14 * Returns today with low oxygen saturations while on 5 L/min of oxygen and dexamethasone. * WBC of 19, hemoglobin 15.6, platelets 589, D-dimer 1.1, CRP 13.9, alb 2.5 * He is outside the window of benefit for remdesivir. * Currently on high flow nasal cannula 45 L at 60% FiO2 * No prior medical problems and a non-smoker. * Leukocytosis likely secondary to steroid effect. CTA did not demonstrate any consolidated areas suggestive of bacterial infection * Thrombocytosis likely inflammatory reaction 01/23/2021 Patient has had significant improvement on high flow nasal cannula. White count is 12.2 with a decreasing D-dimer of 0.92. CRP did increase to 18.3. We discussed the use of Actemra again and he agreed. He is currently on high flow nasal cannula at 40 L and 50% FiO2 keeping his oxygen saturations in the low 90s. He continues on dexamethasone. Remdesivir was not started because of lack of benefit at this stage. Type 2 diabetes mellitusnew I did note that patient has elevated blood sugars and a hemoglobin A1c of 8.0. He will be started on a sliding scale and long-acting insulin. Blood sugar before lunch today was 450. Expect blood sugars to increase because of dexamethasone. Plan * Admit to medical floor * Continue dexamethasone * Actemra 800 mg IV x1 * Lantus 20 units nightly to start * Fingerstick blood sugars 4 times daily with sliding scale insulin * High flow nasal cannula to keep SPO2 between 88 and 94% * Routine COVID-19 treatment to include albuterol, DuoNeb, I-S, proning, respiratory therapy * Follow CBC, CMP, mag, Phos, CRP, and D-dimer * VTE prophylaxis with Lovenox * CODE STATUS: Full code
[2021-01-23] MEDS: Insulin Lispro 100 Unit/ML 3 ML KwikPen SUBCUT SCH ×2 (17:49→21:51)
[2021-01-23] MEDS: Albuterol/Ipratropium 3.0-0.5 MG/3 ML Neb Soln NEB PRN (20:36)
[2021-01-23] MEDS ORDERED: Insulin Glargine,Hum.Rec.Anlog 100 UNIT/ML 3 ML Pen SUBCUT SCH (21:00)
[2021-01-24] MEDS: Albuterol/Ipratropium 3.0-0.5 MG/3 ML Neb Soln NEB PRN ×4 (06:17→22:16)
--- NOTE | 2021-01-24 07:33 | PCM.PN ---
- General Info Date of Service: 01/24/21 Admission Dx/Problem (Free Text): Admission Diagnosis/Problem Admission Diagnosis/Problem COVID-19 pneumonia with acute respiratory failure. Subjective Update: The patient is a 50-year-old gentleman who was admitted to acute hospitalization on January 22, 2021. He was admitted secondary to hypoxia, shortness of breath and was diagnosed with COVID-19 pneumonia. The patient today says that he is feeling better. He has been tolerating his diet. The patient had been previously on dexamethasone while at home. No new pain. No other complaints today. Functional Status: Reports: Pain Controlled, Tolerating Diet - Review of Systems General: Reports: Fatigue, Malaise HEENT: Reports: No Symptoms Pulmonary: Reports: Shortness of Breath, Cough Cardiovascular: Reports: No Symptoms Gastrointestinal: Reports: No Symptoms Genitourinary: Reports: No Symptoms Musculoskeletal: Reports: No Symptoms Skin: Reports: No Symptoms Neurological: Reports: No Symptoms Psychiatric: Reports: No Symptoms - Patient Data Vitals - Most Recent: Last Vital Signs Temp 36.6 C 01/24/21 04:03 Pulse 62 01/24/21 04:03 Resp 20 01/24/21 04:03 BP 130/82 01/24/21 04:03 Pulse Ox 93 L 01/24/21 06:20 Weight - Most Recent: 95.663 kg I&O - Last 24 Hours: Intake & Output 01/23/21 01/24/21 01/24/21 22:59 06:59 14:59 Intake Total 1820 Output Total 1200 Balance 620 Lab Results Last 24 Hours: Laboratory Results - last 24 hr 01/23/21 01/23/21 01/23/21 Range/Units 06:34 06:34 06:34 D-Dimer, Quantitative 0.92 H (0.19-0.50) mg/L Sodium 132 L (136-145) mEq/L Potassium 4.2 (3.5-5.1) mEq/L Chloride 100 (98-107) mEq/L Carbon Dioxide 24 (21-32) mEq/L Anion Gap 12.2 (5-15) BUN 24 H (7-18) mg/dL Creatinine 0.8 (0.7-1.3) mg/dL Est Cr Clr Drug Dosing 125.58 mL/min Estimated GFR (MDRD) > 60 (>60) mL/min BUN/Creatinine Ratio 30.0 H (14-18) Glucose 253 H (70-99) mg/dL POC Glucose (70-99) mg/dL Hemoglobin A1c 8.0 H ( - 5.6) % Calcium 8.1 L (8.5-10.1) mg/dL Phosphorus 3.8 (2.6-4.7) mg/dL Magnesium 2.5 H (1.8-2.4) mg/dL Total Bilirubin 0.5 (0.2-1.0) mg/dL AST 25 (15-37) U/L ALT 115 H (16-63) U/L Alkaline Phosphatase 81 (46-116) U/L C-Reactive Protein 18.3 H* (<1.0) mg/dL Total Protein 6.3 L (6.4-8.2) g/dl Albumin 2.1 L (3.4-5.0) g/dl Globulin 4.2 gm/dL Albumin/Globulin Ratio 0.5 L (1-2) 01/23/21 01/23/21 01/23/21 Range/Units 11:56 16:52 21:48 D-Dimer, Quantitative (0.19-0.50) mg/L Sodium (136-145) mEq/L Potassium (3.5-5.1) mEq/L Chloride (98-107) mEq/L Carbon Dioxide (21-32) mEq/L Anion Gap (5-15) BUN (7-18) mg/dL Creatinine (0.7-1.3) mg/dL Est Cr Clr Drug Dosing mL/min Estimated GFR (MDRD) (>60) mL/min BUN/Creatinine Ratio (14-18) Glucose (70-99) mg/dL POC Glucose 450 H* 227 H 347 H (70-99) mg/dL Hemoglobin A1c ( - 5.6) % Calcium (8.5-10.1) mg/dL Phosphorus (2.6-4.7) mg/dL Magnesium (1.8-2.4) mg/dL Total Bilirubin (0.2-1.0) mg/dL AST (15-37) U/L ALT (16-63) U/L Alkaline Phosphatase (46-116) U/L C-Reactive Protein (<1.0) mg/dL Total Protein (6.4-8.2) g/dl Albumin (3.4-5.0) g/dl Globulin gm/dL Albumin/Globulin Ratio (1-2) 01/24/21 Range/Units 06:46 D-Dimer, Quantitative (0.19-0.50) mg/L Sodium (136-145) mEq/L Potassium (3.5-5.1) mEq/L Chloride (98-107) mEq/L Carbon Dioxide (21-32) mEq/L Anion Gap (5-15) BUN (7-18) mg/dL Creatinine (0.7-1.3) mg/dL Est Cr Clr Drug Dosing mL/min Estimated GFR (MDRD) (>60) mL/min BUN/Creatinine Ratio (14-18) Glucose (70-99) mg/dL POC Glucose 273 H (70-99) mg/dL Hemoglobin A1c ( - 5.6) % Calcium (8.5-10.1) mg/dL Phosphorus (2.6-4.7) mg/dL Magnesium (1.8-2.4) mg/dL Total Bilirubin (0.2-1.0) mg/dL AST (15-37) U/L ALT (16-63) U/L Alkaline Phosphatase (46-116) U/L C-Reactive Protein (<1.0) mg/dL Total Protein (6.4-8.2) g/dl Albumin (3.4-5.0) g/dl Globulin gm/dL Albumin/Globulin Ratio (1-2) Med Orders - Current: Current Medications Acetaminophen (Acetaminophen 325 Mg Tab) 650 mg PO Q4H PRN PRN Reason: Pain (Mild 1-3)/fever Acetaminophen/Codeine Phosphate (Acetaminophen/Codeine 300-30 Mg Tab) 1 tab PO Q4H PRN PRN Reason: Cough Albuterol (Albuterol 6.7 Gm Inhaler) 0 gm INH Q2H PRN PRN Reason: sob/wheezing Albuterol/Ipratropium (Albuterol/Ipratropium 3.0-0.5 Mg/3 Ml Neb Soln) 3 ml NEB Q4HRRT PRN PRN Reason: sob/wheezing Last Admin: 01/24/21 06:17 Dose: 3 ml Documented by: Benzonatate (Benzonatate 100 Mg Cap) 200 mg PO Q8H PRN PRN Reason: Cough Dexamethasone (Dexamethasone 4 Mg Tab) 6 mg PO Q24H ALEX Stop: 01/24/21 14:01 Last Admin: 01/23/21 15:01 Dose: 6 mg Documented by: Enoxaparin Sodium (Enoxaparin 40 Mg/0.4 Ml Syringe) 40 mg SUBCUT DAILY [facility] Last Admin: 01/23/21 09:17 Dose: 40 mg Documented by: Insulin Glargine (Insulin Glargine,Hum.Rec.Anlog 100 Unit/Ml 3 Ml Pen) 20 unit SUBCUT BEDTIME [facility] Last Admin: 01/23/21 21:53 Dose: 20 unit Documented by: Insulin Human Lispro (Insulin Lispro 100 Unit/Ml 3 Ml Kwikpen) 0 unit SUBCUT QIDACANDBED [facility]; Protocol Last Admin: 01/23/21 21:51 Dose: 8 units Documented by: Ondansetron HCl (Ondansetron 4 Mg/2 Ml Sdv) 4 mg IV Q6H PRN PRN Reason: Nausea/Vomiting Discontinued Medications Tocilizumab 800 mg/ Sodium (Chloride) 100 mls @ 100 mls/hr IV ONETIME ONE Stop: 01/23/21 10:59 Last Admin: 01/23/21 11:49 Dose: 100 mls/hr Documented by: Influenza Virus Vaccine (Flu Vacc [id number] 36mos Up/Pf 60 Mcg/0.5 Ml Syringe) 60 mcg IM .ONCE ONE Stop: 01/22/21 12:31 Insulin Human Lispro (Insulin Lispro 100 Unit/Ml 3 Ml Kwikpen) 0 unit SUBCUT QIDACANDBED PRN; Protocol PRN Reason: Hyperglycemia Last Admin: 01/23/21 12:17 Dose: 12 unit Documented by: - Exam Quality Assessment: Supplemental Oxygen, DVT Prophylaxis General: Alert, Oriented, Cooperative, No Acute Distress HEENT: Pupils Equal, Pupils Reactive, EOMI, Mucous Membr. Moist/[place] Neck: Supple, Trachea Midline Lungs: Decreased Breath Sounds, Rales Cardiovascular: Regular Rate, Regular Rhythm GI/Abdominal Exam: Normal Bowel Sounds, Soft, Non-Tender, No Distention (Male) Exam: Deferred Back Exam: Normal Inspection, Full Range of Motion Extremities: Normal Inspection, Normal Range of Motion, No Pedal Edema Skin: Warm, Dry, Intact Neurological: No New Focal Deficit, Normal Speech Psy/Mental Status: Alert, Normal Affect, Normal Mood - Patient Data Lab Results Last 24 hrs: Laboratory Results - last 24 hr 01/23/21 01/23/21 01/23/21 Range/Units 06:34 06:34 06:34 D-Dimer, Quantitative 0.92 H (0.19-0.50) mg/L Sodium 132 L (136-145) mEq/L Potassium 4.2 (3.5-5.1) mEq/L Chloride 100 (98-107) mEq/L Carbon Dioxide 24 (21-32) mEq/L Anion Gap 12.2 (5-15) BUN 24 H (7-18) mg/dL Creatinine 0.8 (0.7-1.3) mg/dL Est Cr Clr Drug Dosing 125.58 mL/min Estimated GFR (MDRD) > 60 (>60) mL/min BUN/Creatinine Ratio 30.0 H (14-18) Glucose 253 H (70-99) mg/dL POC Glucose (70-99) mg/dL Hemoglobin A1c 8.0 H ( - 5.6) % Calcium 8.1 L (8.5-10.1) mg/dL Phosphorus 3.8 (2.6-4.7) mg/dL Magnesium 2.5 H (1.8-2.4) mg/dL Total Bilirubin 0.5 (0.2-1.0) mg/dL AST 25 (15-37) U/L ALT 115 H (16-63) U/L Alkaline Phosphatase 81 (46-116) U/L C-Reactive Protein 18.3 H* (<1.0) mg/dL Total Protein 6.3 L (6.4-8.2) g/dl Albumin 2.1 L (3.4-5.0) g/dl Globulin 4.2 gm/dL Albumin/Globulin Ratio 0.5 L (1-2) 01/23/21 01/23/21 01/23/21 Range/Units 11:56 16:52 21:48 D-Dimer, Quantitative (0.19-0.50) mg/L Sodium (136-145) mEq/L Potassium (3.5-5.1) mEq/L Chloride (98-107) mEq/L Carbon Dioxide (21-32) mEq/L Anion Gap (5-15) BUN (7-18) mg/dL Creatinine (0.7-1.3) mg/dL Est Cr Clr Drug Dosing mL/min Estimated GFR (MDRD) (>60) mL/min BUN/Creatinine Ratio (14-18) Glucose (70-99) mg/dL POC Glucose 450 H* 227 H 347 H (70-99) mg/dL Hemoglobin A1c ( - 5.6) % Calcium (8.5-10.1) mg/dL Phosphorus (2.6-4.7) mg/dL Magnesium (1.8-2.4) mg/dL Total Bilirubin (0.2-1.0) mg/dL AST (15-37) U/L ALT (16-63) U/L Alkaline Phosphatase (46-116) U/L C-Reactive Protein (<1.0) mg/dL Total Protein (6.4-8.2) g/dl Albumin (3.4-5.0) g/dl Globulin gm/dL Albumin/Globulin Ratio (1-2) 01/24/21 Range/Units 06:46 D-Dimer, Quantitative (0.19-0.50) mg/L Sodium (136-145) mEq/L Potassium (3.5-5.1) mEq/L Chloride (98-107) mEq/L Carbon Dioxide (21-32) mEq/L Anion Gap (5-15) BUN (7-18) mg/dL Creatinine (0.7-1.3) mg/dL Est Cr Clr Drug Dosing mL/min Estimated GFR (MDRD) (>60) mL/min BUN/Creatinine Ratio (14-18) Glucose (70-99) mg/dL POC Glucose 273 H (70-99) mg/dL Hemoglobin A1c ( - 5.6) % Calcium (8.5-10.1) mg/dL Phosphorus (2.6-4.7) mg/dL Magnesium (1.8-2.4) mg/dL Total Bilirubin (0.2-1.0) mg/dL AST (15-37) U/L ALT (16-63) U/L Alkaline Phosphatase (46-116) U/L C-Reactive Protein (<1.0) mg/dL Total Protein (6.4-8.2) g/dl Albumin (3.4-5.0) g/dl Globulin gm/dL Albumin/Globulin Ratio (1-2) Result Diagrams: 01/23/21 06:34 01/23/21 06:34 Sepsis Event Note - Evaluation Sepsis Screening Result: No Definite Risk - Focused Exam Vital Signs: Vital Signs Temp Pulse Resp BP Pulse Ox Pulse Ox 01/24/21 06:20 93 L 01/24/21 04:05 90 L 01/24/21 04:03 36.6 C 62 20 130/82 88 L 01/23/21 22:00 91 L 01/23/21 21:58 36.8 C 70 20 138/98 H 87 L 01/23/21 20:39 87 L - Problem List & Annotations (1) Acute respiratory failure due to COVID-19 SNOMED Code(s): 115604856 Code(s): U07.1 - COVID-19; J96.00 - ACUTE RESPIRATORY FAILURE, UNSP W HYPOXIA OR HYPERCAPNIA Status: Acute Priority: High Current Visit: Yes (2) Hypoxemia SNOMED Code(s): 364804952 Code(s): R09.02 - HYPOXEMIA Status: Acute Priority: High Current Visit: Yes (3) Pneumonia due to COVID-19 virus SNOMED Code(s): 157667195146217734 Code(s): U07.1 - COVID-19; J12.82 - PNEUMONIA DUE TO CORONAVIRUS DISEASE 2018 Status: Acute Priority: High Current Visit: Yes - Problem List Review Problem List Initiated/Reviewed/Updated: Yes - Plan Plan:: 50-year-old male with 10+ day history of shortness of breath and COVID-19. COVID-19 pneumonia Respiratory failure * Symptoms first started approximately on January 04 * Given monoclonal antibodies on January 13 * Sent home on 5 L of oxygen per minute and dexamethasone on January 14 * Returns today with low oxygen saturations while on 5 L/min of oxygen and dexamethasone. * WBC of 19, hemoglobin 15.6, platelets 589, D-dimer 1.1, CRP 13.9, alb 2.5 * He is outside the window of benefit for remdesivir. * Currently on high flow nasal cannula 45 L at 60% FiO2 * No prior medical problems and a non-smoker. * Leukocytosis likely secondary to steroid effect. CTA did not demonstrate any consolidated areas suggestive of bacterial infection * Thrombocytosis likely inflammatory reaction 01/23/2021 Patient has had significant improvement on high flow nasal cannula. White count is 12.2 with a decreasing D-dimer of 0.92. CRP did increase to 18.3. We discussed the use of Actemra again and he agreed. He is currently on high flow nasal cannula at 40 L and 50% FiO2 keeping his oxygen saturations in the low 90s. He continues on dexamethasone. Remdesivir was not started because of lack of benefit at this stage. Type 2 diabetes mellitusnew I did note that patient has elevated blood sugars and a hemoglobin A1c of 8.0. He will be started on a sliding scale and long-acting insulin. Blood sugar before lunch today was 450. Expect blood sugars to increase because of dexamethasone. Plan * Admit to medical floor * Continue dexamethasone * Actemra 800 mg IV x1 * Lantus 20 units nightly to start * Fingerstick blood sugars 4 times daily with sliding scale insulin * High flow nasal cannula to keep SPO2 between 88 and 94% * Routine COVID-19 treatment to include albuterol, DuoNeb, I-S, proning, respiratory therapy * Follow CBC, CMP, mag, Phos, CRP, and D-dimer * VTE prophylaxis with Lovenox * CODE STATUS: Full code 01/24/2021 The patient is a 50-year-old gentleman who was admitted secondary to acute respiratory failure with COVID-19 pneumonia. The patient's oxygen will be continued and titrated to keep his saturations around 92%. The patient is a new onset diabetic the patient has had multiple hyperglycemic excursions and I have increased the patient's Lantus from 20 units to 35 units at bedtime. The patient will be continued on sliding scale insulin. We will continue his current treatment for the pneumonia. I have ordered a repeat chest x-ray for the morning. Repeat laboratory studies have been ordered for the morning. The patient is on DVT prophylaxis with the use of Lovenox to continue. critical care educator will be consulted. The patient has been encouraged to ambulate. The patient will need to have close follow-up with his primary care physician for new onset diabetes. The patient should be appropriate for discharge once oxygen demands have improved.
[2021-01-24] MEDS: Insulin Lispro 100 Unit/ML 3 ML KwikPen SUBCUT SCH ×4 (07:49→22:01)
[2021-01-24] MEDS: Enoxaparin 40 MG/0.4 ML Syringe SUBCUT SCH (09:44)
[2021-01-24] MEDS: Dexamethasone 4 MG Tab PO SCH (14:10)
[2021-01-24] MEDS: Insulin Glargine,Hum.Rec.Anlog 100 UNIT/ML 3 ML Pen SUBCUT SCH (22:03)
[2021-01-25] MEDS: Insulin Lispro 100 Unit/ML 3 ML KwikPen SUBCUT SCH ×5 (08:00→21:27)
[2021-01-25] MEDS: Albuterol/Ipratropium 3.0-0.5 MG/3 ML Neb Soln NEB PRN ×2 (08:30→20:15)
--- NOTE | 2021-01-25 08:56 | PCM.PN ---
- General Info Date of Service: 01/25/21 Admission Dx/Problem (Free Text): Admission Diagnosis/Problem Admission Diagnosis/Problem COVID-19 pneumonia with acute respiratory failure. Subjective Update: The patient is a 50-year-old gentleman who was admitted to acute hospitalization on January 22, 2021 due to Covid pneumonia. Today the patient says that he is breathing better. He remains on high flow oxygen. The patient has been tolerating his diet. No other complaints today. Functional Status: Reports: Pain Controlled. Denies: New Symptoms - Review of Systems General: Reports: Weakness HEENT: Reports: No Symptoms Pulmonary: Reports: Shortness of Breath, Cough Cardiovascular: Reports: No Symptoms Gastrointestinal: Reports: No Symptoms Genitourinary: Reports: No Symptoms Musculoskeletal: Reports: No Symptoms Skin: Reports: No Symptoms Neurological: Reports: No Symptoms Psychiatric: Reports: No Symptoms - Patient Data Vitals - Most Recent: Last Vital Signs Temp 36.7 C 01/25/21 05:18 Pulse 69 01/25/21 05:18 Resp 14 01/25/21 05:18 BP 128/82 01/25/21 05:18 Pulse Ox 91 L 01/25/21 08:31 Weight - Most Recent: 95.799 kg I&O - Last 24 Hours: Intake & Output 01/24/21 01/25/21 01/25/21 22:59 06:59 14:59 Intake Total 2370 600 Output Total 1150 1800 Balance 1220 -1200 Lab Results Last 24 Hours: Laboratory Results - last 24 hr 01/24/21 01/24/21 01/24/21 Range/Units 10:46 16:32 21:59 WBC (4.23-9.07) K/mm3 RBC (4.63-6.08) M/mm3 Hgb (13.7-17.5) gm/dl Hct (40.1-51.0) % MCV (79.0-92.2) fl MCH (25.7-32.2) pg MCHC (32.2-35.5) g/dl RDW Std Deviation (35.1-43.9) fL Plt Count (163-337) K/mm3 MPV (9.4-12.3) fl Neut % (Auto) (34.0-67.9) % Lymph % (Auto) (21.8-53.1) % [place] % (Auto) (5.3-12.2) % Eos % (Auto) (0.8-7.0) Baso % (Auto) (0.1-1.2) % Neut # (Auto) (1.78-5.38) K/mm3 Lymph # (Auto) (1.32-3.57) K/mm3 [place] # (Auto) (0.30-0.82) K/mm3 Eos # (Auto) (0.04-0.54) K/mm3 Baso # (Auto) (0.01-0.08) K/mm3 Sodium (136-145) mEq/L Potassium (3.5-5.1) mEq/L Chloride (98-107) mEq/L Carbon Dioxide (21-32) mEq/L Anion Gap (5-15) BUN (7-18) mg/dL Creatinine (0.7-1.3) mg/dL Est Cr Clr Drug Dosing mL/min Estimated GFR (MDRD) (>60) mL/min BUN/Creatinine Ratio (14-18) Glucose (70-99) mg/dL POC Glucose 372 H 270 H 293 H (70-99) mg/dL Calcium (8.5-10.1) mg/dL Total Bilirubin (0.2-1.0) mg/dL AST (15-37) U/L ALT (16-63) U/L Alkaline Phosphatase (46-116) U/L C-Reactive Protein (<1.0) mg/dL Total Protein (6.4-8.2) g/dl Albumin (3.4-5.0) g/dl Globulin gm/dL Albumin/Globulin Ratio (1-2) 01/25/21 01/25/21 01/25/21 Range/Units 05:45 05:45 06:22 WBC 13.08 H (4.23-9.07) K/mm3 RBC 4.68 (4.63-6.08) M/mm3 Hgb 13.5 L (13.7-17.5) gm/dl Hct 41.8 (40.1-51.0) % MCV 89.3 (79.0-92.2) fl MCH 28.8 (25.7-32.2) pg MCHC 32.3 (32.2-35.5) g/dl RDW Std Deviation 43.8 (35.1-43.9) fL Plt Count 428 H (163-337) K/mm3 MPV 9.4 (9.4-12.3) fl Neut % (Auto) 88.7 H (34.0-67.9) % Lymph % (Auto) 4.7 L (21.8-53.1) % [place] % (Auto) 5.8 (5.3-12.2) % Eos % (Auto) 0.1 L (0.8-7.0) Baso % (Auto) 0.1 (0.1-1.2) % Neut # (Auto) 11.61 H (1.78-5.38) K/mm3 Lymph # (Auto) 0.61 L (1.32-3.57) K/mm3 [place] # (Auto) 0.76 (0.30-0.82) K/mm3 Eos # (Auto) 0.01 L (0.04-0.54) K/mm3 Baso # (Auto) 0.01 (0.01-0.08) K/mm3 Sodium 136 (136-145) mEq/L Potassium 4.7 (3.5-5.1) mEq/L Chloride 102 (98-107) mEq/L Carbon Dioxide 24 (21-32) mEq/L Anion Gap 14.7 (5-15) BUN 25 H (7-18) mg/dL Creatinine 0.7 (0.7-1.3) mg/dL Est Cr Clr Drug Dosing 143.52 mL/min Estimated GFR (MDRD) > 60 (>60) mL/min BUN/Creatinine Ratio 35.7 H (14-18) Glucose 219 H (70-99) mg/dL POC Glucose 184 H (70-99) mg/dL Calcium 8.2 L (8.5-10.1) mg/dL Total Bilirubin 0.5 (0.2-1.0) mg/dL AST 26 (15-37) U/L ALT 118 H (16-63) U/L Alkaline Phosphatase 74 (46-116) U/L C-Reactive Protein 2.5 H* (<1.0) mg/dL Total Protein 5.7 L (6.4-8.2) g/dl Albumin 2.3 L (3.4-5.0) g/dl Globulin 3.4 gm/dL Albumin/Globulin Ratio 0.7 L (1-2) Med Orders - Current: Current Medications Acetaminophen (Acetaminophen 325 Mg Tab) 650 mg PO Q4H PRN PRN Reason: Pain (Mild 1-3)/fever Acetaminophen/Codeine Phosphate (Acetaminophen/Codeine 300-30 Mg Tab) 1 tab PO Q4H PRN PRN Reason: Cough Albuterol (Albuterol 6.7 Gm Inhaler) 0 gm INH Q2H PRN PRN Reason: sob/wheezing Albuterol/Ipratropium (Albuterol/Ipratropium 3.0-0.5 Mg/3 Ml Neb Soln) 3 ml NEB Q4HRRT PRN PRN Reason: sob/wheezing Last Admin: 01/25/21 08:30 Dose: 3 ml Documented by: Benzonatate (Benzonatate 100 Mg Cap) 200 mg PO Q8H PRN PRN Reason: Cough Enoxaparin Sodium (Enoxaparin 40 Mg/0.4 Ml Syringe) 40 mg SUBCUT DAILY [facility] Last Admin: 01/24/21 09:44 Dose: 40 mg Documented by: Insulin Glargine (Insulin Glargine,Hum.Rec.Anlog 100 Unit/Ml 3 Ml Pen) 35 unit SUBCUT BEDTIME [facility] Last Admin: 01/24/21 22:03 Dose: 35 units Documented by: Insulin Human Lispro (Insulin Lispro 100 Unit/Ml 3 Ml Kwikpen) 0 unit SUBCUT QIDACANDBED [facility]; Protocol Last Admin: 01/25/21 08:00 Dose: 2 units Documented by: Ondansetron HCl (Ondansetron 4 Mg/2 Ml Sdv) 4 mg IV Q6H PRN PRN Reason: Nausea/Vomiting Discontinued Medications Dexamethasone (Dexamethasone 4 Mg Tab) 6 mg PO Q24H [facility] Stop: 01/24/21 14:01 Last Admin: 01/24/21 14:10 Dose: 6 mg Documented by: Tocilizumab 800 mg/ Sodium (Chloride) 100 mls @ 100 mls/hr IV ONETIME ONE Stop: 01/23/21 10:59 Last Admin: 01/23/21 11:49 Dose: 100 mls/hr Documented by: Influenza Virus Vaccine (Flu Vacc [id number] 36mos Up/Pf 60 Mcg/0.5 Ml Syringe) 60 mcg IM .ONCE ONE Stop: 01/22/21 12:31 Insulin Glargine (Insulin Glargine,Hum.Rec.Anlog 100 Unit/Ml 3 Ml Pen) 20 unit SUBCUT BEDTIME [facility] Last Admin: 01/23/21 21:53 Dose: 20 unit Documented by: Insulin Human Lispro (Insulin Lispro 100 Unit/Ml 3 Ml Kwikpen) 0 unit SUBCUT QIDACANDBED PRN; Protocol PRN Reason: Hyperglycemia Last Admin: 01/23/21 12:17 Dose: 12 unit Documented by: - Exam Quality Assessment: Supplemental Oxygen, DVT Prophylaxis General: Alert, Oriented, Cooperative, No Acute Distress HEENT: Pupils Equal, Pupils Reactive, EOMI, Mucous Membr. Moist/[place] Neck: Supple, Trachea Midline Lungs: Decreased Breath Sounds, Rales (Bibasilar) Cardiovascular: Regular Rate, Regular Rhythm GI/Abdominal Exam: Normal Bowel Sounds, Soft, No Distention (Male) Exam: Deferred Back Exam: Normal Inspection, Full Range of Motion Extremities: Normal Inspection, No Pedal Edema Skin: Warm, Dry, Intact Neurological: No New Focal Deficit Psy/Mental Status: Alert, Normal Affect, Normal Mood - Patient Data Lab Results Last 24 hrs: Laboratory Results - last 24 hr 01/24/21 01/24/21 01/24/21 Range/Units 10:46 16:32 21:59 WBC (4.23-9.07) K/mm3 RBC (4.63-6.08) M/mm3 Hgb (13.7-17.5) gm/dl Hct (40.1-51.0) % MCV (79.0-92.2) fl MCH (25.7-32.2) pg MCHC (32.2-35.5) g/dl RDW Std Deviation (35.1-43.9) fL Plt Count (163-337) K/mm3 MPV (9.4-12.3) fl Neut % (Auto) (34.0-67.9) % Lymph % (Auto) (21.8-53.1) % [place] % (Auto) (5.3-12.2) % Eos % (Auto) (0.8-7.0) Baso % (Auto) (0.1-1.2) % Neut # (Auto) (1.78-5.38) K/mm3 Lymph # (Auto) (1.32-3.57) K/mm3 [place] # (Auto) (0.30-0.82) K/mm3 Eos # (Auto) (0.04-0.54) K/mm3 Baso # (Auto) (0.01-0.08) K/mm3 Sodium (136-145) mEq/L Potassium (3.5-5.1) mEq/L Chloride (98-107) mEq/L Carbon Dioxide (21-32) mEq/L Anion Gap (5-15) BUN (7-18) mg/dL Creatinine (0.7-1.3) mg/dL Est Cr Clr Drug Dosing mL/min Estimated GFR (MDRD) (>60) mL/min BUN/Creatinine Ratio (14-18) Glucose (70-99) mg/dL POC Glucose 372 H 270 H 293 H (70-99) mg/dL Calcium (8.5-10.1) mg/dL Total Bilirubin (0.2-1.0) mg/dL AST (15-37) U/L ALT (16-63) U/L Alkaline Phosphatase (46-116) U/L C-Reactive Protein (<1.0) mg/dL Total Protein (6.4-8.2) g/dl Albumin (3.4-5.0) g/dl Globulin gm/dL Albumin/Globulin Ratio (1-2) 01/25/21 01/25/21 01/25/21 Range/Units 05:45 05:45 06:22 WBC 13.08 H (4.23-9.07) K/mm3 RBC 4.68 (4.63-6.08) M/mm3 Hgb 13.5 L (13.7-17.5) gm/dl Hct 41.8 (40.1-51.0) % MCV 89.3 (79.0-92.2) fl MCH 28.8 (25.7-32.2) pg MCHC 32.3 (32.2-35.5) g/dl RDW Std Deviation 43.8 (35.1-43.9) fL Plt Count 428 H (163-337) K/mm3 MPV 9.4 (9.4-12.3) fl Neut % (Auto) 88.7 H (34.0-67.9) % Lymph % (Auto) 4.7 L (21.8-53.1) % [place] % (Auto) 5.8 (5.3-12.2) % Eos % (Auto) 0.1 L (0.8-7.0) Baso % (Auto) 0.1 (0.1-1.2) % Neut # (Auto) 11.61 H (1.78-5.38) K/mm3 Lymph # (Auto) 0.61 L (1.32-3.57) K/mm3 [place] # (Auto) 0.76 (0.30-0.82) K/mm3 Eos # (Auto) 0.01 L (0.04-0.54) K/mm3 Baso # (Auto) 0.01 (0.01-0.08) K/mm3 Sodium 136 (136-145) mEq/L Potassium 4.7 (3.5-5.1) mEq/L Chloride 102 (98-107) mEq/L Carbon Dioxide 24 (21-32) mEq/L Anion Gap 14.7 (5-15) BUN 25 H (7-18) mg/dL Creatinine 0.7 (0.7-1.3) mg/dL Est Cr Clr Drug Dosing 143.52 mL/min Estimated GFR (MDRD) > 60 (>60) mL/min BUN/Creatinine Ratio 35.7 H (14-18) Glucose 219 H (70-99) mg/dL POC Glucose 184 H (70-99) mg/dL Calcium 8.2 L (8.5-10.1) mg/dL Total Bilirubin 0.5 (0.2-1.0) mg/dL AST 26 (15-37) U/L ALT 118 H (16-63) U/L Alkaline Phosphatase 74 (46-116) U/L C-Reactive Protein 2.5 H* (<1.0) mg/dL Total Protein 5.7 L (6.4-8.2) g/dl Albumin 2.3 L (3.4-5.0) g/dl Globulin 3.4 gm/dL Albumin/Globulin Ratio 0.7 L (1-2) Result Diagrams: 01/25/21 05:45 01/25/21 05:45 Sepsis Event Note - Evaluation Sepsis Screening Result: No Definite Risk - Focused Exam Vital Signs: Vital Signs Temp Pulse Pulse Resp BP Pulse Ox Pulse Ox 01/25/21 08:31 91 L 01/25/21 05:20 89 L 01/25/21 05:18 36.7 C 69 14 128/82 85 L 01/25/21 00:20 36.6 C 66 20 131/76 90 L 01/25/21 00:00 90 L 01/24/21 22:19 92 L 01/24/21 21:00 64 20 92 L - Problem List & Annotations (1) Acute respiratory failure due to COVID-19 SNOMED Code(s): 496382024 Code(s): U07.1 - COVID-19; J96.00 - ACUTE RESPIRATORY FAILURE, UNSP W HYPOXIA OR HYPERCAPNIA Status: Acute Priority: High Current Visit: Yes (2) Hypoxemia SNOMED Code(s): 043734222 Code(s): R09.02 - HYPOXEMIA Status: Acute Priority: High Current Visit: Yes (3) Pneumonia due to COVID-19 virus SNOMED Code(s): 334674107699629446 Code(s): U07.1 - COVID-19; J12.82 - PNEUMONIA DUE TO CORONAVIRUS DISEASE 2019 Status: Acute Priority: High Current Visit: Yes - Problem List Review Problem List Initiated/Reviewed/Updated: Yes - My Orders Last 24 Hours: My Active Orders 01/24/21 21:00 Insulin Glargine,Hum.Rec.Anlog [Semglee Pen] 35 unit SUBCUT BEDTIME 01/25/21 08:00 CXR [Chest 1V Frontal] [CR] Routine - Plan Plan:: 50-year-old male with 10+ day history of shortness of breath and COVID-19. COVID-19 pneumonia Respiratory failure * Symptoms first started approximately on January 04 * Given monoclonal antibodies on January 13 * Sent home on 5 L of oxygen per minute and dexamethasone on January 14 * Returns today with low oxygen saturations while on 5 L/min of oxygen and dexamethasone. * WBC of 19, hemoglobin 15.6, platelets 589, D-dimer 1.1, CRP 13.9, alb 2.5 * He is outside the window of benefit for remdesivir. * Currently on high flow nasal cannula 45 L at 60% FiO2 * No prior medical problems and a non-smoker. * Leukocytosis likely secondary to steroid effect. CTA did not demonstrate any consolidated areas suggestive of bacterial infection * Thrombocytosis likely inflammatory reaction 01/23/2021 Patient has had significant improvement on high flow nasal cannula. White count is 12.2 with a decreasing D-dimer of 0.92. CRP did increase to 18.3. We discussed the use of Actemra again and he agreed. He is currently on high flow nasal cannula at 40 L and 50% FiO2 keeping his oxygen saturations in the low 90 s. He continues on dexamethasone. Remdesivir was not started because of lack of benefit at this stage. Type 2 diabetes mellitusnew I did note that patient has elevated blood sugars and a hemoglobin A1c of 8.0. He will be started on a sliding scale and long-acting insulin. Blood sugar before lunch today was 450. Expect blood sugars to increase because of dexamethasone. Plan * Admit to medical floor * Continue dexamethasone * Actemra 800 mg IV x1 * Lantus 20 units nightly to start * Fingerstick blood sugars 4 times daily with sliding scale insulin * High flow nasal cannula to keep SPO2 between 88 and 94% * Routine COVID-19 treatment to include albuterol, DuoNeb, I-S, proning, respiratory therapy * Follow CBC, CMP, mag, Phos, CRP, and D-dimer * VTE prophylaxis with Lovenox * CODE STATUS: Full code 01/24/2021 The patient is a 50-year-old gentleman who was admitted secondary to acute respiratory failure with COVID-19 pneumonia. The patient's oxygen will be continued and titrated to keep his saturations around 92%. The patient is a new onset diabetic the patient has had multiple hyperglycemic excursions and I have increased the patient's Lantus from 20 units to 35 units at bedtime. The patient will be continued on sliding scale insulin. We will continue his current treatment for the pneumonia. I have ordered a repeat chest x-ray for the morning. Repeat laboratory studies have been ordered for the morning. The patient is on DVT prophylaxis with the use of Lovenox to continue. tobacco prevention health educator will be consulted. The patient has been encouraged to ambulate. The patient will need to have close follow-up with his primary care physician for new onset diabetes. The patient should be appropriate for discharge once oxygen demands have improved. 01/25/2021 The patient is a 50-year-old gentleman who is currently being treated for Covid pneumonia. The patient will have his oxygen titrated to keep his saturations around 90 to 92%. Currently pending informatics educator. The patient has not been started antibiotics or remdesivir on due to lack of benefit. Patient has been treated with monoclonal antibodies. He is also on steroids and this will continue. The patient also has been encouraged to ambulate. Patient has DVT prophylaxis with the use of Lovenox 40 mg subcutaneous. The patient will be kept on constant carb diet. The patient will also be on sliding scale insulin. I have also ordered repeat laboratory studies for the morning. The patient should be appropriate for discharge once oxygen demands have improved.
[2021-01-25] MEDS: Enoxaparin 40 MG/0.4 ML Syringe SUBCUT SCH (09:38)
--- NOTE | 2021-01-25 15:51 | CR ---
Chest: Portable view of the chest was obtained. Comparison: Prior chest CT of 03/24/21 and chest x-ray of 01/14/21. Diffuse increased density is seen within both sides of the chest. Findings are fairly similar to previous chest CT. Heart size and mediastinum are within normal limits. Bony structures show nothing acute. Impression: 1. Diffuse increased density within both sides of the chest compatible with COVID pneumonia. No change is seen from prior chest CT. Diagnostic code #3 I agree with preliminary report from [facility], finalized on 01/25/21, 11:12 AM CDT, code 1
[2021-01-25] MEDS: Insulin Glargine,Hum.Rec.Anlog 100 UNIT/ML 3 ML Pen SUBCUT SCH (20:53)
[2021-01-26] MEDS: Albuterol/Ipratropium 3.0-0.5 MG/3 ML Neb Soln NEB PRN ×2 (05:56→19:53)
[2021-01-26] MEDS: Insulin Lispro 100 Unit/ML 3 ML KwikPen SUBCUT SCH ×4 (06:57→21:35)
[2021-01-26] MEDS: Albuterol 6.7 GM Inhaler INH PRN ×2 (07:41→13:47)
[2021-01-26] MEDS: Enoxaparin 40 MG/0.4 ML Syringe SUBCUT SCH (08:47)
--- NOTE | 2021-01-26 11:30 | PCM.PN ---
<EvaRupinder M - Last Filed: 01/26/21 11:31> - General Info Date of Service: 01/26/21 Admission Dx/Problem (Free Text): Admission Diagnosis/Problem Admission Diagnosis/Problem COVID-19 pneumonia with acute respiratory failure. Subjective Update: Trung was seen on rounds this morning and states he is feeling well. Continues on 5 L of oxygen per nasal cannula however he states he is not having any shortness of breath associated with this. He does admit to an occasional productive cough of a small amount of sputum. Awaiting special educator to see the patient. We will continue to titrate oxygen. Functional Status: Reports: Pain Controlled, Tolerating Diet, Ambulating, Urinating, Incentive Spirometry - Review of Systems General: Reports: No Symptoms HEENT: Reports: No Symptoms Pulmonary: Reports: Cough (Occasional), Sputum (Small amount). Denies: Shortness of Breath Cardiovascular: Reports: No Symptoms Gastrointestinal: Reports: No Symptoms Genitourinary: Reports: No Symptoms Musculoskeletal: Reports: No Symptoms Skin: Reports: No Symptoms Neurological: Reports: No Symptoms Psychiatric: Reports: No Symptoms - Patient Data Vitals - Most Recent: Last Vital Signs Temp 97.3 F 01/26/21 07:39 Pulse 76 01/26/21 07:39 Resp 30 H 01/26/21 07:39 BP 110/82 01/26/21 07:39 Pulse Ox 89 L 01/26/21 07:42 Weight - Most Recent: 95.617 kg I&O - Last 24 Hours: Intake & Output 01/25/21 01/26/21 01/26/21 22:59 06:59 14:59 Intake Total 1500 400 Output Total 950 900 Balance 550 -500 Lab Results Last 24 Hours: Laboratory Results - last 24 hr 01/25/21 01/25/21 01/25/21 Range/Units 11:39 16:53 20:50 WBC (4.23-9.07) K/mm3 RBC (4.63-6.08) M/mm3 Hgb (13.7-17.5) gm/dl Hct (40.1-51.0) % MCV (79.0-92.2) fl MCH (25.7-32.2) pg MCHC (32.2-35.5) g/dl RDW Std Deviation (35.1-43.9) fL Plt Count (163-337) K/mm3 MPV (9.4-12.3) fl Neut % (Auto) (34.0-67.9) % Lymph % (Auto) (21.8-53.1) % Crisp % (Auto) (5.3-12.2) % Eos % (Auto) (0.8-7.0) Baso % (Auto) (0.1-1.2) % Neut # (Auto) (1.78-5.38) K/mm3 Lymph # (Auto) (1.32-3.57) K/mm3 Crisp # (Auto) (0.30-0.82) K/mm3 Eos # (Auto) (0.04-0.54) K/mm3 Baso # (Auto) (0.01-0.08) K/mm3 Manual Slide Review Sodium (136-145) mEq/L Potassium (3.5-5.1) mEq/L Chloride (98-107) mEq/L Carbon Dioxide (21-32) mEq/L Anion Gap (5-15) BUN (7-18) mg/dL Creatinine (0.7-1.3) mg/dL Est Cr Clr Drug Dosing mL/min Estimated GFR (MDRD) (>60) mL/min BUN/Creatinine Ratio (14-18) Glucose (70-99) mg/dL POC Glucose 335 H 235 H 255 H (70-99) mg/dL Calcium (8.5-10.1) mg/dL 01/26/21 01/26/21 01/26/21 Range/Units 05:58 05:58 06:28 WBC 6.67 (4.23-9.07) K/mm3 RBC 4.92 (4.63-6.08) M/mm3 Hgb 14.2 (13.7-17.5) gm/dl Hct 44.3 (40.1-51.0) % MCV 90.0 (79.0-92.2) fl MCH 28.9 (25.7-32.2) pg MCHC 32.1 L (32.2-35.5) g/dl RDW Std Deviation 44.1 H (35.1-43.9) fL Plt Count 392 H (163-337) K/mm3 MPV 9.4 (9.4-12.3) fl Neut % (Auto) 72.8 H (34.0-67.9) % Lymph % (Auto) 13.9 L (21.8-53.1) % Crisp % (Auto) 11.2 (5.3-12.2) % Eos % (Auto) 1.3 (0.8-7.0) Baso % (Auto) 0.1 (0.1-1.2) % Neut # (Auto) 4.84 (1.78-5.38) K/mm3 Lymph # (Auto) 0.93 L (1.32-3.57) K/mm3 Crisp # (Auto) 0.75 (0.30-0.82) K/mm3 Eos # (Auto) 0.09 (0.04-0.54) K/mm3 Baso # (Auto) 0.01 (0.01-0.08) K/mm3 Manual Slide Review Normal smear Sodium 137 (136-145) mEq/L Potassium 4.1 (3.5-5.1) mEq/L Chloride 103 (98-107) mEq/L Carbon Dioxide 27 (21-32) mEq/L Anion Gap 11.1 (5-15) BUN 23 H (7-18) mg/dL Creatinine 0.7 (0.7-1.3) mg/dL Est Cr Clr Drug Dosing 143.52 mL/min Estimated GFR (MDRD) > 60 (>60) mL/min BUN/Creatinine Ratio 32.9 H (14-18) Glucose 121 H (70-99) mg/dL POC Glucose 117 H (70-99) mg/dL Calcium 8.1 L (8.5-10.1) mg/dL 01/26/ Range/Units 10:28 WBC (4.23-9.07) K/mm3 RBC (4.63-6.08) M/mm3 Hgb (13.7-17.5) gm/dl Hct (40.1-51.0) % MCV (79.0-92.2) fl MCH (25.7-32.2) pg MCHC (32.2-35.5) g/dl RDW Std Deviation (35.1-43.9) fL Plt Count (163-337) K/mm3 MPV (9.4-12.3) fl Neut % (Auto) (34.0-67.9) % Lymph % (Auto) (21.8-53.1) % Crisp % (Auto) (5.3-12.2) % Eos % (Auto) (0.8-7.0) Baso % (Auto) (0.1-1.2) % Neut # (Auto) (1.78-5.38) K/mm3 Lymph # (Auto) (1.32-3.57) K/mm3 Crisp # (Auto) (0.30-0.82) K/mm3 Eos # (Auto) (0.04-0.54) K/mm3 Baso # (Auto) (0.01-0.08) K/mm3 Manual Slide Review Sodium (136-145) mEq/L Potassium (3.5-5.1) mEq/L Chloride (98-107) mEq/L Carbon Dioxide (21-32) mEq/L Anion Gap (5-15) BUN (7-18) mg/dL Creatinine (0.7-1.3) mg/dL Est Cr Clr Drug Dosing mL/min Estimated GFR (MDRD) (>60) mL/min BUN/Creatinine Ratio (14-18) Glucose (70-99) mg/dL POC Glucose 349 H (70-99) mg/dL Calcium (8.5-10.1) mg/dL Med Orders - Current: Current Medications Acetaminophen (Acetaminophen 325 Mg Tab) 650 mg PO Q4H PRN PRN Reason: Pain (Mild 1-3)/fever Acetaminophen/Codeine Phosphate (Acetaminophen/Codeine 300-30 Mg Tab) 1 tab PO Q4H PRN PRN Reason: Cough Albuterol (Albuterol 6.7 Gm Inhaler) 0 gm INH Q2H PRN PRN Reason: sob/wheezing Last Admin: 01/26/21 07:41 Dose: 2 puff Documented by: Albuterol/Ipratropium (Albuterol/Ipratropium 3.0-0.5 Mg/3 Ml Neb Soln) 3 ml NEB Q4HRRT PRN PRN Reason: sob/wheezing Last Admin: 01/26/21 05:56 Dose: 3 ml Documented by: Benzonatate (Benzonatate 100 Mg Cap) 200 mg PO Q8H PRN PRN Reason: Cough Enoxaparin Sodium (Enoxaparin 40 Mg/0.4 Ml Syringe) 40 mg SUBCUT DAILY [facility] Last Admin: 01/26/21 08:47 Dose: 40 mg Documented by: Insulin Glargine (Insulin Glargine,Hum.Rec.Anlog 100 Unit/Ml 3 Ml Pen) 35 unit SUBCUT BEDTIME [facility] Last Admin: 01/25/21 20:53 Dose: 35 units Documented by: Insulin Human Lispro (Insulin Lispro 100 Unit/Ml 3 Ml Kwikpen) 0 unit SUBCUT QIDACANDBED [facility]; Protocol Last Admin: 01/26/21 11:22 Dose: 8 units Documented by: Ondansetron HCl (Ondansetron 4 Mg/2 Ml Sdv) 4 mg IV Q6H PRN PRN Reason: Nausea/Vomiting Discontinued Medications Dexamethasone (Dexamethasone 4 Mg Tab) 6 mg PO Q24H [facility] Stop: 01/24/21 14:01 Last Admin: 01/24/21 14:10 Dose: 6 mg Documented by: Tocilizumab 800 mg/ Sodium (Chloride) 100 mls @ 100 mls/hr IV ONETIME ONE Stop: 01/23/21 10:59 Last Admin: 01/23/21 11:49 Dose: 100 mls/hr Documented by: Influenza Virus Vaccine (Flu Vacc [id number] 36mos Up/Pf 60 Mcg/0.5 Ml Syringe) 60 mcg IM .ONCE ONE Stop: 01/22/21 12:31 Insulin Glargine (Insulin Glargine,Hum.Rec.Anlog 100 Unit/Ml 3 Ml Pen) 20 unit SUBCUT BEDTIME [facility] Last Admin: 01/23/21 21:53 Dose: 20 unit Documented by: Insulin Human Lispro (Insulin Lispro 100 Unit/Ml 3 Ml Kwikpen) 0 unit SUBCUT QIDACANDBED PRN; Protocol PRN Reason: Hyperglycemia Last Admin: 01/23/21 12:17 Dose: 12 unit Documented by: - Exam Quality Assessment: Supplemental Oxygen (5 L per nasal cannula), DVT Prophylaxis (Lovenox) General: Alert, Oriented, Cooperative HEENT: Pupils Equal, Pupils Reactive, Mucous Membr. Moist/[place] Neck: Supple, Trachea Midline Lungs: Normal Respiratory Effort, Decreased Breath Sounds, Crackles (Bilateral bases) Cardiovascular: Regular Rate, Regular Rhythm, No Murmurs GI/Abdominal Exam: Normal Bowel Sounds, Soft, Non-Tender, No Distention (Male) Exam: Deferred Back Exam: Normal Inspection Extremities: Normal Inspection, Normal Range of Motion, No Pedal Edema, Normal Capillary Refill Peripheral Pulses: 2+: Radial (L), Radial (R) Skin: Warm, Dry, Intact Neurological: No New Focal Deficit Psy/Mental Status: Alert, Normal Affect, Normal Mood - Patient Data Lab Results Last 24 hrs: Laboratory Results - last 24 hr 01/25/21 01/25/21 01/25/21 Range/Units 11:39 16:53 20:50 WBC (4.23-9.07) K/mm3 RBC (4.63-6.08) M/mm3 Hgb (13.7-17.5) gm/dl Hct (40.1-51.0) % MCV (79.0-92.2) fl MCH (25.7-32.2) pg MCHC (32.2-35.5) g/dl RDW Std Deviation (35.1-43.9) fL Plt Count (163-337) K/mm3 MPV (9.4-12.3) fl Neut % (Auto) (34.0-67.9) % Lymph % (Auto) (21.8-53.1) % Crisp % (Auto) (5.3-12.2) % Eos % (Auto) (0.8-7.0) Baso % (Auto) (0.1-1.2) % Neut # (Auto) (1.78-5.38) K/mm3 Lymph # (Auto) (1.32-3.57) K/mm3 Crisp # (Auto) (0.30-0.82) K/mm3 Eos # (Auto) (0.04-0.54) K/mm3 Baso # (Auto) (0.01-0.08) K/mm3 Manual Slide Review Sodium (136-145) mEq/L Potassium (3.5-5.1) mEq/L Chloride (98-107) mEq/L Carbon Dioxide (21-32) mEq/L Anion Gap (5-15) BUN (7-18) mg/dL Creatinine (0.7-1.3) mg/dL Est Cr Clr Drug Dosing mL/min Estimated GFR (MDRD) (>60) mL/min BUN/Creatinine Ratio (14-18) Glucose (70-99) mg/dL POC Glucose 335 H 235 H 255 H (70-99) mg/dL Calcium (8.5-10.1) mg/dL 01/26/21 01/26/21 01/26/21 Range/Units 05:58 05:58 06:28 WBC 6.67 (4.23-9.07) K/mm3 RBC 4.92 (4.63-6.08) M/mm3 Hgb 14.2 (13.7-17.5) gm/dl Hct 44.3 (40.1-51.0) % MCV 90.0 (79.0-92.2) fl MCH 28.9 (25.7-32.2) pg MCHC 32.1 L (32.2-35.5) g/dl RDW Std Deviation 44.1 H (35.1-43.9) fL Plt Count 392 H (163-337) K/mm3 MPV 9.4 (9.4-12.3) fl Neut % (Auto) 72.8 H (34.0-67.9) % Lymph % (Auto) 13.9 L (21.8-53.1) % Crisp % (Auto) 11.2 (5.3-12.2) % Eos % (Auto) 1.3 (0.8-7.0) Baso % (Auto) 0.1 (0.1-1.2) % Neut # (Auto) 4.84 (1.78-5.38) K/mm3 Lymph # (Auto) 0.93 L (1.32-3.57) K/mm3 Crisp # (Auto) 0.75 (0.30-0.82) K/mm3 Eos # (Auto) 0.09 (0.04-0.54) K/mm3 Baso # (Auto) 0.01 (0.01-0.08) K/mm3 Manual Slide Review Normal smear Sodium 137 (136-145) mEq/L Potassium 4.1 (3.5-5.1) mEq/L Chloride 103 (98-107) mEq/L Carbon Dioxide 27 (21-32) mEq/L Anion Gap 11.1 (5-15) BUN 23 H (7-18) mg/dL Creatinine 0.7 (0.7-1.3) mg/dL Est Cr Clr Drug Dosing 143.52 mL/min Estimated GFR (MDRD) > 60 (>60) mL/min BUN/Creatinine Ratio 32.9 H (14-18) Glucose 121 H (70-99) mg/dL POC Glucose 117 H (70-99) mg/dL Calcium 8.1 L (8.5-10.1) mg/dL 01/26/21 Range/Units 10:28 WBC (4.23-9.07) K/mm3 RBC (4.63-6.08) M/mm3 Hgb (13.7-17.5) gm/dl Hct (40.1-51.0) % MCV (79.0-92.2) fl MCH (25.7-32.2) pg MCHC (32.2-35.5) g/dl RDW Std Deviation (35.1-43.9) fL Plt Count (163-337) K/mm3 MPV (9.4-12.3) fl Neut % (Auto) (34.0-67.9) % Lymph % (Auto) (21.8-53.1) % Crisp % (Auto) (5.3-12.2) % Eos % (Auto) (0.8-7.0) Baso % (Auto) (0.1-1.2) % Neut # (Auto) (1.78-5.38) K/mm3 Lymph # (Auto) (1.32-3.57) K/mm3 Crisp # (Auto) (0.30-0.82) K/mm3 Eos # (Auto) (0.04-0.54) K/mm3 Baso # (Auto) (0.01-0.08) K/mm3 Manual Slide Review Sodium (136-145) mEq/L Potassium (3.5-5.1) mEq/L Chloride (98-107) mEq/L Carbon Dioxide (21-32) mEq/L Anion Gap (5-15) BUN (7-18) mg/dL Creatinine (0.7-1.3) mg/dL Est Cr Clr Drug Dosing mL/min Estimated GFR (MDRD) (>60) mL/min BUN/Creatinine Ratio (14-18) Glucose (70-99) mg/dL POC Glucose 349 H (70-99) mg/dL Calcium (8.5-10.1) mg/dL Result Diagrams: 01/26/21 05:58 01/26/21 05:58 Sepsis Event Note - Evaluation Sepsis Screening Result: No Definite Risk - Focused Exam Vital Signs: Vital Signs Temp Pulse Resp BP Pulse Ox Pulse Ox 01/26/21 07:42 89 L 01/26/21 07:39 97.3 F 76 30 H 110/82 88 L 01/26/21 05:56 92 L 01/26/21 04:51 98.2 F 62 12 111/67 94 L 01/26/21 00:00 91 L - Problem List & Annotations (1) Acute respiratory failure due to COVID-19 SNOMED Code(s): 623394130 Code(s): U07.1 - COVID-19; J96.00 - ACUTE RESPIRATORY FAILURE, UNSP W HYPOXIA OR HYPERCAPNIA Status: Acute Priority: High Current Visit: Yes (2) Hypoxemia SNOMED Code(s): 537617203 Code(s): R09.02 - HYPOXEMIA Status: Acute Priority: High Current Visit: Yes (3) Pneumonia due to COVID-19 virus SNOMED Code(s): 609210745054736468 Code(s): U07.1 - COVID-19; J12.82 - PNEUMONIA DUE TO CORONAVIRUS DISEASE 2019 Status: Acute Priority: High Current Visit: Yes - Problem List Review Problem List Initiated/Reviewed/Updated: Yes - Assessment Assessment:: 01/24/2021 The patient is a 50-year-old gentleman who was admitted secondary to acute respiratory failure with COVID-19 pneumonia. The patient's oxygen will be continued and titrated to keep his saturations around 92%. The patient is a new onset diabetic the patient has had multiple hyperglycemic excursions and I have increased the patient's Lantus from 20 units to 35 units at bedtime. The patient will be continued on sliding scale insulin. We will continue his current treatment for the pneumonia. I have ordered a repeat chest x-ray for the morning. Repeat laboratory studies have been ordered for the morning. The patient is on DVT prophylaxis with the use of Lovenox to continue. informatics educator will be consulted. The patient has been encouraged to ambulate. The patient will need to have close follow-up with his primary care physician for new onset diabetes. The patient should be appropriate for discharge once oxygen demands have improved. 01/25/2021 The patient is a 50-year-old gentleman who is currently being treated for Covid pneumonia. The patient will have his oxygen titrated to keep his saturations around 90 to 92%. Currently pending special educator. The patient has not been started antibiotics or remdesivir on due to lack of benefit. Patient has been treated with monoclonal antibodies. He is also on steroids and this will continue. The patient also has been encouraged to ambulate. Patient has DVT prophylaxis with the use of Lovenox 40 mg subcutaneous. The patient will be kept on constant carb diet. The patient will also be on sliding scale insulin. I have also ordered repeat laboratory studies for the morning. The patient should be appropriate for discharge once oxygen demands have improved. 01/26/2021 50-year-old male who presented to the ER with complaints of shortness of breath and was subsequently admitted to the medical surgical floor for secondary acute respiratory failure with COVID-19 pneumonia. He reports feeling well today. Continues on 5 L of oxygen per nasal cannula with O2 saturations at 89%. We are waiting for special educator to see the patient as he is a new onset diabetic. Currently being treated with dexamethasone for Covid. He has been up and a mbulating in the room independently and denies any shortness of breath with activity. We will continue with Lovenox 40 mg daily for DVT prophylaxis. Will continue to attempt to wean patient's oxygen. Potential discharge tomorrow dependent on oxygen requirements. - Plan Plan:: 50-year-old male with 10+ day history of shortness of breath and COVID-19. COVID-19 pneumonia Respiratory failure * Symptoms first started approximately on January 04 * Given monoclonal antibodies on January 13 * Sent home on 5 L of oxygen per minute and dexamethasone on January 14 * Returns today with low oxygen saturations while on 5 L/min of oxygen and dexamethasone. * WBC of 19, hemoglobin 15.6, platelets 589, D-dimer 1.1, CRP 13.9, alb 2.5 * He is outside the window of benefit for remdesivir. * Currently on high flow nasal cannula 45 L at 60% FiO2 * No prior medical problems and a non-smoker. * Leukocytosis likely secondary to steroid effect. CTA did not demonstrate any consolidated areas suggestive of bacterial infection * Thrombocytosis likely inflammatory reaction 01/23/2021 Patient has had significant improvement on high flow nasal cannula. White count is 12.2 with a decreasing D-dimer of 0.92. CRP did increase to 18.3. We discussed the use of Actemra again and he agreed. He is currently on high flow nasal cannula at 40 L and 50% FiO2 keeping his oxygen saturations in the low 90s. He continues on dexamethasone. Remdesivir was not started because of lack of benefit at this stage. Type 2 diabetes mellitusnew I did note that patient has elevated blood sugars and a hemoglobin A1c of 8.0. He will be started on a sliding scale and long-acting insulin. Blood sugar before lunch today was 450. Expect blood sugars to increase because of dexamethasone. Plan * Admit to medical floor * Continue dexamethasone * Actemra 800 mg IV x1 * Lantus 20 units nightly to start * Fingerstick blood sugars 4 times daily with sliding scale insulin * High flow nasal cannula to keep SPO2 between 88 and 94% * Routine COVID-19 treatment to include albuterol, DuoNeb, I-S, proning, respiratory therapy * Follow CBC, CMP, mag, Phos, CRP, and D-dimer * VTE prophylaxis with Lovenox * CODE STATUS: Full code 01/24/2021 The patient is a 50-year-old gentleman who was admitted secondary to acute respiratory failure with COVID-19 pneumonia. The patient's oxygen will be continued and titrated to keep his saturations around 92%. The patient is a new onset diabetic the patient has had multiple hyperglycemic excursions and I have increased the patient's Lantus from 20 units to 35 units at bedtime. The patient will be continued on sliding scale insulin. We will continue his current treatment for the pneumonia. I have ordered a repeat chest x-ray for the morning. Repeat laboratory studies have been ordered for the morning. The patient is on DVT prophylaxis with the use of Lovenox to continue. informatics educator will be consulted. The patient has been encouraged to ambulate. The patient will need to have close follow-up with his primary care physician for new onset diabetes. The patient should be appropriate for discharge once oxygen demands have improved. 01/25/2021 The patient is a 50-year-old gentleman who is currently being treated for Covid pneumonia. The patient will have his oxygen titrated to keep his saturations around 90 to 92%. Currently pending special educator. The patient has not been started antibiotics or remdesivir on due to lack of benefit. Patient has been treated with monoclonal antibodies. He is also on steroids and this will continue. The patient also has been encouraged to ambulate. Patient has DVT prophylaxis with the use of Lovenox 40 mg subcutaneous. The patient will be kept on constant carb diet. The patient will also be on sliding scale insulin. I have also ordered repeat laboratory studies for the morning. The patient should be appropriate for discharge once oxygen demands have improved. 01/26/21 * O2 to keep saturations rater than 92% * Continue dexamethasone * Fingerstick blood sugars 4 times daily with sliding scale insulin * Routine COVID-19 treatment to include albuterol, DuoNeb, I-S, proning, respiratory therapy * Lantus 35 units daily * Humalog SSI qid * Repeat labs in am * Potential discharge to home in am dependent upon O2 requirements. <Baljinder Morris - Last Filed: 01/26/21 13:28> - Patient Data Vitals - Most Recent: Last Vital Signs Temp 36.7 C 01/26/21 11:27 Pulse 83 01/26/21 11:27 Resp 14 01/26/21 11:27 BP 108/71 01/26/21 11:27 Pulse Ox 92 L 01/26/21 11:27 I&O - Last 24 Hours: Intake & Output 01/25/21 01/26/21 01/26/21 22:59 06:59 14:59 Intake Total 1500 400 150 Output Total 950 900 Balance 550 -500 150 Lab Results Last 24 Hours: Laboratory Results - last 24 hr 01/25/21 01/25/21 01/26/21 Range/Units 16:53 20:50 05:58 WBC 6.67 (4.23-9.07) K/mm3 RBC 4.92 (4.63-6.08) M/mm3 Hgb 14.2 (13.7-17.5) gm/dl Hct 44.3 (40.1-51.0) % MCV 90.0 (79.0-92.2) fl MCH 28.9 (25.7-32.2) pg MCHC 32.1 L (32.2-35.5) g/dl RDW Std Deviation 44.1 H (35.1-43.9) fL Plt Count 392 H (163-337) K/mm3 MPV 9.4 (9.4-12.3) fl Neut % (Auto) 72.8 H (34.0-67.9) % Lymph % (Auto) 13.9 L (21.8-53.1) % Crisp % (Auto) 11.2 (5.3-12.2) % Eos % (Auto) 1.3 (0.8-7.0) Baso % (Auto) 0.1 (0.1-1.2) % Neut # (Auto) 4.84 (1.78-5.38) K/mm3 Lymph # (Auto) 0.93 L (1.32-3.57) K/mm3 Crisp # (Auto) 0.75 (0.30-0.82) K/mm3 Eos # (Auto) 0.09 (0.04-0.54) K/mm3 Baso # (Auto) 0.01 (0.01-0.08) K/mm3 Manual Slide Review Normal smear Sodium (136-145) mEq/L Potassium (3.5-5.1) mEq/L Chloride (98-107) mEq/L Carbon Dioxide (21-32) mEq/L Anion Gap (5-15) BUN (7-18) mg/dL Creatinine (0.7-1.3) mg/dL Est Cr Clr Drug Dosing mL/min Estimated GFR (MDRD) (>60) mL/min BUN/Creatinine Ratio (14-18) Glucose (70-99) mg/dL POC Glucose 235 H 255 H (70-99) mg/dL Calcium (8.5-10.1) mg/dL 01/26/21 01/26/21 01/26/21 Range/Units 05:58 06:28 10:28 WBC (4.23-9.07) K/mm3 RBC (4.63-6.08) M/mm3 Hgb (13.7-17.5) gm/dl Hct (40.1-51.0) % MCV (79.0-92.2) fl MCH (25.7-32.2) pg MCHC (32.2-35.5) g/dl RDW Std Deviation (35.1-43.9) fL Plt Count (163-337) K/mm3 MPV (9.4-12.3) fl Neut % (Auto) (34.0-67.9) % Lymph % (Auto) (21.8-53.1) % Crisp % (Auto) (5.3-12.2) % Eos % (Auto) (0.8-7.0) Baso % (Auto) (0.1-1.2) % Neut # (Auto) (1.78-5.38) K/mm3 Lymph # (Auto) (1.32-3.57) K/mm3 Crisp # (Auto) (0.30-0.82) K/mm3 Eos # (Auto) (0.04-0.54) K/mm3 Baso # (Auto) (0.01-0.08) K/mm3 Manual Slide Review Sodium 137 (136-145) mEq/L Potassium 4.1 (3.5-5.1) mEq/L Chloride 103 (98-107) mEq/L Carbon Dioxide 27 (21-32) mEq/L Anion Gap 11.1 (5-15) BUN 23 H (7-18) mg/dL Creatinine 0.7 (0.7-1.3) mg/dL Est Cr Clr Drug Dosing 143.52 mL/min Estimated GFR (MDRD) > 60 (>60) mL/min BUN/Creatinine Ratio 32.9 H (14-18) Glucose 121 H (70-99) mg/dL POC Glucose 117 H 349 H (70-99) mg/dL Calcium 8.1 L (8.5-10.1) mg/dL Med Orders - Current: Current Medications Acetaminophen (Acetaminophen 325 Mg Tab) 650 mg PO Q4H PRN PRN Reason: Pain (Mild 1-3)/fever Acetaminophen/Codeine Phosphate (Acetaminophen/Codeine 300-30 Mg Tab) 1 tab PO Q4H PRN PRN Reason: Cough Albuterol (Albuterol 6.7 Gm Inhaler) 0 gm INH Q2H PRN PRN Reason: sob/wheezing Last Admin: 01/26/21 07:41 Dose: 2 puff Documented by: Albuterol/Ipratropium (Albuterol/Ipratropium 3.0-0.5 Mg/3 Ml Neb Soln) 3 ml NEB Q4HRRT PRN PRN Reason: sob/wheezing Last Admin: 01/26/21 05:56 Dose: 3 ml Documented by: Benzonatate (Benzonatate 100 Mg Cap) 200 mg PO Q8H PRN PRN Reason: Cough Enoxaparin Sodium (Enoxaparin 40 Mg/0.4 Ml Syringe) 40 mg SUBCUT DAILY [facility] Last Admin: 01/26/21 08:47 Dose: 40 mg Documented by: Insulin Glargine (Insulin Glargine,Hum.Rec.Anlog 100 Unit/Ml 3 Ml Pen) 35 unit SUBCUT BEDTIME [facility] Last Admin: 01/25/21 20:53 Dose: 35 units Documented by: Insulin Human Lispro (Insulin Lispro 100 Unit/Ml 3 Ml Kwikpen) 0 unit SUBCUT QIDACANDBED [facility]; Protocol Last Admin: 01/26/21 11:22 Dose: 8 units Documented by: Ondansetron HCl (Ondansetron 4 Mg/2 Ml Sdv) 4 mg IV Q6H PRN PRN Reason: Nausea/Vomiting Discontinued Medications Dexamethasone (Dexamethasone 4 Mg Tab) 6 mg PO Q24H [facility] Stop: 01/24/21 14:01 Last Admin: 01/24/21 14:10 Dose: 6 mg Documented by: Tocilizumab 800 mg/ Sodium (Chloride) 100 mls @ 100 mls/hr IV ONETIME ONE Stop: 01/23/21 10:59 Last Admin: 01/23/21 11:49 Dose: 100 mls/hr Documented by: Influenza Virus Vaccine (Flu Vacc [id number] 36mos Up/Pf 60 Mcg/0.5 Ml Syringe) 60 mcg IM .ONCE ONE Stop: 01/22/21 12:31 Insulin Glargine (Insulin Glargine,Hum.Rec.Anlog 100 Unit/Ml 3 Ml Pen) 20 unit SUBCUT BEDTIME ALEX Last Admin: 01/23/21 21:53 Dose: 20 unit Documented by: Insulin Human Lispro (Insulin Lispro 100 Unit/Ml 3 Ml Kwikpen) 0 unit SUBCUT QIDACANDBED PRN; Protocol PRN Reason: Hyperglycemia Last Admin: 01/23/21 12:17 Dose: 12 unit Documented by: - Patient Data Lab Results Last 24 hrs: Laboratory Results - last 24 hr 01/25/21 01/25/21 01/26/21 Range/Units 16:53 20:50 05:58 WBC 6.67 (4.23-9.07) K/mm3 RBC 4.92 (4.63-6.08) M/mm3 Hgb 14.2 (13.7-17.5) gm/dl Hct 44.3 (40.1-51.0) % MCV 90.0 (79.0-92.2) fl MCH 28.9 (25.7-32.2) pg MCHC 32.1 L (32.2-35.5) g/dl RDW Std Deviation 44.1 H (35.1-43.9) fL Plt Count 392 H (163-337) K/mm3 MPV 9.4 (9.4-12.3) fl Neut % (Auto) 72.8 H (34.0-67.9) % Lymph % (Auto) 13.9 L (21.8-53.1) % Crisp % (Auto) 11.2 (5.3-12.2) % Eos % (Auto) 1.3 (0.8-7.0) Baso % (Auto) 0.1 (0.1-1.2) % Neut # (Auto) 4.84 (1.78-5.38) K/mm3 Lymph # (Auto) 0.93 L (1.32-3.57) K/mm3 Crisp # (Auto) 0.75 (0.30-0.82) K/mm3 Eos # (Auto) 0.09 (0.04-0.54) K/mm3 Baso # (Auto) 0.01 (0.01-0.08) K/mm3 Manual Slide Review Normal smear Sodium (136-145) mEq/L Potassium (3.5-5.1) mEq/L Chloride (98-107) mEq/L Carbon Dioxide (21-32) mEq/L Anion Gap (5-15) BUN (7-18) mg/dL Creatinine (0.7-1.3) mg/dL Est Cr Clr Drug Dosing mL/min Estimated GFR (MDRD) (>60) mL/min BUN/Creatinine Ratio (14-18) Glucose (70-99) mg/dL POC Glucose 235 H 255 H (70-99) mg/dL Calcium (8.5-10.1) mg/dL 01/26/21 01/26/21 01/26/21 Range/Units 05:58 06:28 10:28 WBC (4.23-9.07) K/mm3 RBC (4.63-6.08) M/mm3 Hgb (13.7-17.5) gm/dl Hct (40.1-51.0) % MCV (79.0-92.2) fl MCH (25.7-32.2) pg MCHC (32.2-35.5) g/dl RDW Std Deviation (35.1-43.9) fL Plt Count (163-337) K/mm3 MPV (9.4-12.3) fl Neut % (Auto) (34.0-67.9) % Lymph % (Auto) (21.8-53.1) % Crisp % (Auto) (5.3-12.2) % Eos % (Auto) (0.8-7.0) Baso % (Auto) (0.1-1.2) % Neut # (Auto) (1.78-5.38) K/mm3 Lymph # (Auto) (1.32-3.57) K/mm3 Crisp # (Auto) (0.30-0.82) K/mm3 Eos # (Auto) (0.04-0.54) K/mm3 Baso # (Auto) (0.01-0.08) K/mm3 Manual Slide Review Sodium 137 (136-145) mEq/L Potassium 4.1 (3.5-5.1) mEq/L Chloride 103 (98-107) mEq/L Carbon Dioxide 27 (21-32) mEq/L Anion Gap 11.1 (5-15) BUN 23 H (7-18) mg/dL Creatinine 0.7 (0.7-1.3) mg/dL Est Cr Clr Drug Dosing 143.52 mL/min Estimated GFR (MDRD) > 60 (>60) mL/min BUN/Creatinine Ratio 32.9 H (14-18) Glucose 121 H (70-99) mg/dL POC Glucose 117 H 349 H (70-99) mg/dL Calcium 8.1 L (8.5-10.1) mg/dL Result Diagrams: 01/26/21 05:58 01/26/21 05:58 Sepsis Event Note - Focused Exam Vital Signs: Vital Signs Temp Pulse Resp BP Pulse Ox Pulse Ox 01/26/21 11:27 36.7 C 83 14 108/71 92 L 01/26/21 07:42 89 L 01/26/21 07:39 36.3 C 76 30 H 110/82 88 L 01/26/21 05:56 92 L 01/26/21 04:51 36.8 C 62 12 111/67 94 L - Problem List & Annotations (1) Acute respiratory failure due to COVID-19 SNOMED Code(s): 059099070 Code(s): U07.1 - COVID-19; J96.00 - ACUTE RESPIRATORY FAILURE, UNSP W HYPOXIA OR HYPERCAPNIA Status: Acute Priority: High Current Visit: Yes (2) Hypoxemia SNOMED Code(s): 463893857 Code(s): R09.02 - HYPOXEMIA Status: Acute Priority: High Current Visit: Yes (3) Pneumonia due to COVID-19 virus SNOMED Code(s): 823712381109176794 Code(s): U07.1 - COVID-19; J12.82 - PNEUMONIA DUE TO CORONAVIRUS DISEASE 2019 Status: Acute Priority: High Current Visit: Yes - Free Text/Narrative Note: I have seen and examined the patient independently of PEMA Milan, and I have discussed the case with her. I have reviewed and agree with the plan of care as outlined by her. Please see orders.
[2021-01-26] MEDS: Insulin Glargine,Hum.Rec.Anlog 100 UNIT/ML 3 ML Pen SUBCUT SCH (21:37)
[2021-01-27] MEDS ORDERED: Insulin Glargine,Hum.Rec.Anlog 100 UNIT/ML 3 ML Pen SUBCUT SCH
[2021-01-27] MEDS ORDERED: Insulin Lispro 100 Unit/ML 3 ML KwikPen SUBCUT SCH
[2021-01-27] MEDS: Albuterol/Ipratropium 3.0-0.5 MG/3 ML Neb Soln NEB PRN (05:55)
[2021-01-27] MEDS: Insulin Lispro 100 Unit/ML 3 ML KwikPen SUBCUT SCH ×2 (10:05→11:42)
[2021-01-27] MEDS: Enoxaparin 40 MG/0.4 ML Syringe SUBCUT SCH (10:07)
--- NOTE | 2021-01-27 12:44 | PCM.DCSUM1 ---
<Rupinder Velasquez M - Last Filed: 01/27/21 12:58> Discharge Summary - Hospital Course HPI Initial Comments: 50-year-old male who presented to the emergency department on January 13. Chief complaint was shortness of breath and fatigued. On that date, he was diagnosed with Covid and did receive monoclonal antibodies. He returned to the emergency department a day later with complaints of worsening shortness of breath. At that time he was found to be hypoxemic with O2 saturations in the 70s and was started on 5 L of oxygen per nasal cannula. He was also started on dexamethasone and sent home on oxygen due to the fact that there were not any beds available in the hospital. The patient subsequently returned to the Covid clinic with complaints of worsening shortness of breath and fatigue. He states that his oxygen levels at that time were 70s. Patient was found to have oxygen saturations at 85% on 5 L and subsequently was admitted to the hospital. He eventually needed high flow oxygen with a flow rate of 45 L at 60% FiO2. He did not receive remdesivir as he was out of the treatment window to receive any benefit however he did receive Actemra. He was also treated with dexamethasone until 01/24/2021 as this was the last day of 10 days of treatment as this was started on previous ER visit. It was also discovered that the patient's blood sugar was 450 and his hemoglobin A1c was 8.0, subsequently he was diagnosed with new onset diabetes. Patient was started on insulin and did receive diabetic education prior to discharge. Diagnosis: Stroke: No - Discharge Data Discharge Date: 01/27/21 Discharge Disposition: Home, Self-Care 01 Condition: Good - Referral to Home Health Primary Care Physician: PCP None - Discharge Diagnosis/Problem(s) (1) Acute respiratory failure due to COVID-19 SNOMED Code(s): 114365136 ICD Code: U07.1 - COVID-19; J96.00 - ACUTE RESPIRATORY FAILURE, UNSP W HYPOXIA OR HYPERCAPNIA Status: Acute Priority: High (2) Hypoxemia SNOMED Code(s): 072374931 ICD Code: R09.02 - HYPOXEMIA Status: Acute Priority: High (3) Pneumonia due to COVID-19 virus SNOMED Code(s): 803483524676557029 ICD Code: U07.1 - COVID-19; J12.82 - PNEUMONIA DUE TO CORONAVIRUS DISEASE 2018 Status: Acute Priority: High (4) Diabetes SNOMED Code(s): 85030400 ICD Code: E11.9 - TYPE 2 DIABETES MELLITUS WITHOUT COMPLICATIONS Status: Acute Priority: High Qualifiers: Diabetes mellitus type: type 2 Diabetes mellitus skilled nursing insulin use: unspecified skilled nursing insulin use status Diabetes mellitus complication status: without complication Qualified Code(s): E11.9 - Type 2 diabetes mellitus without complications - Patient Summary/Data Consults: Consultations 01/22/21 13:31 Respiratory Care Assess and Treatment [CONS] Routine 01/23/21 12:43 Consult to Diabetic Nurse Specialist [CONS] Stat Hospital Course: 01/22/2021 50-year-old male with 10+ day history of shortness of breath and COVID-19. COVID-19 pneumonia Respiratory failure * Symptoms first started approximately on January 04 * Given monoclonal antibodies on January 13 * Sent home on 5 L of oxygen per minute and dexamethasone on January 14 * Returns today with low oxygen saturations while on 5 L/min of oxygen and dexamethasone. * WBC of 19, hemoglobin 15.6, platelets 589, D-dimer 1.1, CRP 13.9, alb 2.5 * He is outside the window of benefit for remdesivir. * Currently on high flow nasal cannula 45 L at 60% FiO2 * No prior medical problems and a non-smoker. * Leukocytosis likely secondary to steroid effect. CTA did not demonstrate any consolidated areas suggestive of bacterial infection * Thrombocytosis likely inflammatory reaction Plan * Admit to medical floor * Continue dexamethasone * Offer Actemra * High flow nasal cannula to keep SPO2 between 88 and 94% * Routine COVID-19 treatment to include albuterol, DuoNeb, I-S, proning, respiratory therapy * Follow CBC, CMP, mag, Phos, CRP, and D-dimer * VTE prophylaxis with Lovenox * CODE STATUS: Full code 01/23/2021 Patient has had significant improvement on high flow nasal cannula. White count is 12.2 with a decreasing D-dimer of 0.92. CRP did increase to 18.3. We discussed the use of Actemra again and he agreed. He is currently on high flow nasal cannula at 40 L and 50% FiO2 keeping his oxygen saturations in the low 90s. He continues on dexamethasone. Remdesivir was not started because of lack of benefit at this stage. Type 2 diabetes mellitusnew I did note that patient has elevated blood sugars and a hemoglobin A1c of 8.0. He will be started on a sliding scale and long-acting insulin. Blood sugar before lunch today was 450. Expect blood sugars to increase because of dexamethasone. Plan * Admit to medical floor * Continue dexamethasone * Actemra 800 mg IV x1 * Lantus 20 units nightly to start * Fingerstick blood sugars 4 times daily with sliding scale insulin * High flow nasal cannula to keep SPO2 between 88 and 94% * Routine COVID-19 treatment to include albuterol, DuoNeb, I-S, proning, respiratory therapy * Follow CBC, CMP, mag, Phos, CRP, and D-dimer * VTE prophylaxis with Lovenox * CODE STATUS: Full code 01/24/2021 The patient is a 50-year-old gentleman who was admitted secondary to acute respi ratory failure with COVID-19 pneumonia. The patient's oxygen will be continued and titrated to keep his saturations around 92%. The patient is a new onset diabetic the patient has had multiple hyperglycemic excursions and I have increased the patient's Lantus from 20 units to 35 units at bedtime. The patient will be continued on sliding scale insulin. We will continue his current treatment for the pneumonia. I have ordered a repeat chest x-ray for the morning. Repeat laboratory studies have been ordered for the morning. The patient is on DVT prophylaxis with the use of Lovenox to continue. outreach educator will be consulted. The patient has been encouraged to ambulate. The patient will need to have close follow-up with his primary care physician for new onset diabetes. The patient should be appropriate for discharge once oxygen demands have improved. 01/25/2021 The patient is a 50-year-old gentleman who is currently being treated for Covid pneumonia. The patient will have his oxygen titrated to keep his saturations around 90 to 92%. Currently pending ems educator. The patient has not been started antibiotics or remdesivir on due to lack of benefit. Patient has been treated with monoclonal antibodies. He is also on steroids and this will continue. The patient also has been encouraged to ambulate. Patient has DVT prophylaxis with the use of Lovenox 40 mg subcutaneous. The patient will be kept on constant carb diet. The patient will also be on sliding scale insulin. I have also ordered repeat laboratory studies for the morning. The patient should be appropriate for discharge once oxygen demands have improved. 01/26/2021 50-year-old male who presented to the ER with complaints of shortness of breath and was subsequently admitted to the medical surgical floor for secondary acute respiratory failure with COVID-19 pneumonia. He reports feeling well today. Continues on 5 L of oxygen per nasal cannula with O2 saturations at 89%. We are waiting for ems educator to see the patient as he is a new onset diabetic. He has been up and ambulating in the room independently and denies any shortness of breath with activity. We will continue with Lovenox 40 mg daily for DVT prophylaxis. Will continue to attempt to wean patient's oxygen. Potential discharge tomorrow dependent on oxygen requirements. 01/27/2021 Patient is a 50-year-old male who was seen in the emergency department and admitted for hypoxemia secondary to Covid pneumonia. He reports feeling very well today. Down to 4 L of oxygen per nasal cannula with O2 saturations in the mid nineties. He denies any fever, chills, nausea, vomiting or diarrhea. He states that his appetite has returned. He has met with ems educator and feels confident about being discharged home with insulin. Patient has been qualified for home oxygen use. An appointment has been scheduled with her primary care provider for follow-up regarding diabetes and hypoxemia. - Patient Instructions Diet: Diabetic Diet Activity: As Tolerated - Discharge Plan Prescriptions/Med Rec: Insulin Lispro [Humalog] See Protocol SUBCUT QIDACANDBED #1 pen Albuterol [Proventil HFA] 2 puff INH Q2H PRN #1 inhaler PRN Reason: sob/wheezing Insulin Glargine,Hum.Rec.Anlog [Semglee Pen] 35 unit SUBCUT BEDTIME #1 pen Home Medications: Home Meds Albuterol [Proventil HFA] 2 puff INH Q2H PRN #1 inhaler 01/27/21 [Rx] Insulin Glargine,Hum.Rec.Anlog [Semglee Pen] 35 unit SUBCUT BEDTIME #1 pen 01/27/21 [Rx] Insulin Lispro [Humalog] See Protocol SUBCUT QIDACANDBED #1 pen 01/27/21 [Rx] Oxygen Therapy Mode: Nasal Cannula Oxygen Flow Rate (L/min): 3 Maintain SpO2% greater than: 92 Patient Handouts: COVID-19, Home Oxygen Use, Adult, COVID-19: How to Protect Yourself and Others - CDC, Sepsis, Self Care, Adult Referrals: Cameron Barajas MD [Physician] - 02/05/21 9:40 am (Please arrive at 9:40 for check in, this is to Establish care and follow up discharge from hospital) - Discharge Summary/Plan Comment DC Time >30 min.: No Total # of Minutes for Discharge Time: 25 - General Info Date of Service: 01/27/21 Admission Dx/Problem (Free Text: Admission Diagnosis/Problem Admission Diagnosis/Problem COVID-19 pneumonia with acute respiratory failure. Functional Status: Reports: Pain Controlled, Tolerating Diet, Ambulating, Urinating, Incentive Spirometry - Review of Systems General: Reports: No Symptoms HEENT: Reports: No Symptoms Pulmonary: Reports: Cough (Occasional dry nonproductive) Cardiovascular: Reports: No Symptoms Gastrointestinal: Reports: No Symptoms Genitourinary: Reports: No Symptoms Musculoskeletal: Reports: No Symptoms Skin: Reports: No Symptoms Neurological: Reports: No Symptoms Psychiatric: Reports: No Symptoms - Patient Data Vitals - Most Recent: Last Vital Signs Temp 97.5 F 01/26/21 15:02 Pulse 78 01/26/21 15:02 Resp 28 H 01/26/21 15:02 BP 118/68 01/26/21 15:02 Pulse Ox 94 L 01/27/21 08:14 Weight - Most Recent: 95.345 kg I&O - Last 24 hours: Intake & Output 01/26/21 01/27/21 01/27/21 22:59 06:59 14:59 Intake Total 1240 500 Output Total 500 800 Balance 740 -300 Lab Results - Last 24 hrs: Laboratory Results - last 24 hr 01/26/21 01/26/21 01/27/21 Range/Units 17:12 20:53 05:30 WBC 6.00 (4.23-9.07) K/mm3 RBC 4.74 (4.63-6.08) M/mm3 Hgb 14.0 (13.7-17.5) gm/dl Hct 42.8 (40.1-51.0) % MCV 90.3 (79.0-92.2) fl MCH 29.5 (25.7-32.2) pg MCHC 32.7 (32.2-35.5) g/dl RDW Std Deviation 45.1 H (35.1-43.9) fL Plt Count 330 (163-337) K/mm3 MPV 9.3 L (9.4-12.3) fl Neut % (Auto) 70.6 H (34.0-67.9) % Lymph % (Auto) 13.8 L (21.8-53.1) % [place] % (Auto) 12.7 H (5.3-12.2) % Eos % (Auto) 2.7 (0.8-7.0) Baso % (Auto) 0.2 (0.1-1.2) % Neut # (Auto) 4.24 (1.78-5.38) K/mm3 Lymph # (Auto) 0.83 L (1.32-3.57) K/mm3 [place] # (Auto) 0.76 (0.30-0.82) K/mm3 Eos # (Auto) 0.16 (0.04-0.54) K/mm3 Baso # (Auto) 0.01 (0.01-0.08) K/mm3 Manual Slide Review Normal smear Sodium (136-145) mEq/L Potassium (3.5-5.1) mEq/L Chloride (98-107) mEq/L Carbon Dioxide (21-32) mEq/L Anion Gap (5-15) BUN (7-18) mg/dL Creatinine (0.7-1.3) mg/dL Est Cr Clr Drug Dosing mL/min Estimated GFR (MDRD) (>60) mL/min BUN/Creatinine Ratio (14-18) Glucose (70-99) mg/dL POC Glucose 130 H 168 H (70-99) mg/dL Calcium (8.5-10.1) mg/dL Magnesium (1.8-2.4) mg/dL Total Bilirubin (0.2-1.0) mg/dL AST (15-37) U/L ALT (16-63) U/L Alkaline Phosphatase (46-116) U/L C-Reactive Protein (<1.0) mg/dL Total Protein (6.4-8.2) g/dl Albumin (3.4-5.0) g/dl Globulin gm/dL Albumin/Globulin Ratio (1-2) 01/27/21 01/27/21 01/27/21 Range/Units 05:30 06:24 11:15 WBC (4.23-9.07) K/mm3 RBC (4.63-6.08) M/mm3 Hgb (13.7-17.5) gm/dl Hct (40.1-51.0) % MCV (79.0-92.2) fl MCH (25.7-32.2) pg MCHC (32.2-35.5) g/dl RDW Std Deviation (35.1-43.9) fL Plt Count (163-337) K/mm3 MPV (9.4-12.3) fl Neut % (Auto) (34.0-67.9) % Lymph % (Auto) (21.8-53.1) % [place] % (Auto) (5.3-12.2) % Eos % (Auto) (0.8-7.0) Baso % (Auto) (0.1-1.2) % Neut # (Auto) (1.78-5.38) K/mm3 Lymph # (Auto) (1.32-3.57) K/mm3 [place] # (Auto) (0.30-0.82) K/mm3 Eos # (Auto) (0.04-0.54) K/mm3 Baso # (Auto) (0.01-0.08) K/mm3 Manual Slide Review Sodium 136 (136-145) mEq/L Potassium 4.0 (3.5-5.1) mEq/L Chloride 105 (98-107) mEq/L Carbon Dioxide 25 (21-32) mEq/L Anion Gap 10.0 (5-15) BUN 17 (7-18) mg/dL Creatinine 0.6 L (0.7-1.3) mg/dL Est Cr Clr Drug Dosing 167.44 mL/min Estimated GFR (MDRD) > 60 (>60) mL/min BUN/Creatinine Ratio 28.3 H (14-18) Glucose 118 H (70-99) mg/dL POC Glucose 131 H 206 H (70-99) mg/dL Calcium 7.8 L (8.5-10.1) mg/dL Magnesium 2.0 (1.8-2.4) mg/dL Total Bilirubin 0.4 (0.2-1.0) mg/dL AST 34 (15-37) U/L ALT 130 H (16-63) U/L Alkaline Phosphatase 59 (46-116) U/L C-Reactive Protein <0.2 (<1.0) mg/dL Total Protein 5.1 L (6.4-8.2) g/dl Albumin 2.3 L (3.4-5.0) g/dl Globulin 2.8 gm/dL Albumin/Globulin Ratio 0.8 L (1-2) Med Orders - Current: Current Medications Acetaminophen (Acetaminophen 325 Mg Tab) 650 mg PO Q4H PRN PRN Reason: Pain (Mild 1-3)/fever Acetaminophen/Codeine Phosphate (Acetaminophen/Codeine 300-30 Mg Tab) 1 tab PO Q4H PRN PRN Reason: Cough Albuterol (Albuterol 6.7 Gm Inhaler) 0 gm INH Q2H PRN PRN Reason: sob/wheezing Last Admin: 01/26/21 13:47 Dose: 2 puff Documented by: Albuterol/Ipratropium (Albuterol/Ipratropium 3.0-0.5 Mg/3 Ml Neb Soln) 3 ml NEB Q4HRRT PRN PRN Reason: sob/wheezing Last Admin: 01/27/21 05:55 Dose: 3 ml Documented by: Benzonatate (Benzonatate 100 Mg Cap) 200 mg PO Q8H PRN PRN Reason: Cough Enoxaparin Sodium (Enoxaparin 40 Mg/0.4 Ml Syringe) 40 mg SUBCUT DAILY [facility] Last Admin: 01/27/21 10:07 Dose: 40 mg Documented by: Insulin Glargine (Insulin Glargine,Hum.Rec.Anlog 100 Unit/Ml 3 Ml Pen) 35 unit SUBCUT BEDTIME [facility] Last Admin: 01/26/21 21:37 Dose: 35 units Documented by: Insulin Human Lispro (Insulin Lispro 100 Unit/Ml 3 Ml Kwikpen) 0 unit SUBCUT QIDACANDBED [facility]; Protocol Last Admin: 01/27/21 11:42 Dose: 4 units Documented by: Ondansetron HCl (Ondansetron 4 Mg/2 Ml Sdv) 4 mg IV Q6H PRN PRN Reason: Nausea/Vomiting Discontinued Medications Dexamethasone (Dexamethasone 4 Mg Tab) 6 mg PO Q24H ALEX Stop: 01/24/21 14:01 Last Admin: 01/24/21 14:10 Dose: 6 mg Documented by: Tocilizumab 800 mg/ Sodium (Chloride) 100 mls @ 100 mls/hr IV ONETIME ONE Stop: 01/23/21 10:59 Last Admin: 01/23/21 11:49 Dose: 100 mls/hr Documented by: Influenza Virus Vaccine (Flu Vacc [id number] 36mos Up/Pf 60 Mcg/0.5 Ml Syringe) 60 mcg IM .ONCE ONE Stop: 01/22/21 12:31 Insulin Glargine (Insulin Glargine,Hum.Rec.Anlog 100 Unit/Ml 3 Ml Pen) 20 unit SUBCUT BEDTIME ALEX Last Admin: 01/23/21 21:53 Dose: 20 unit Documented by: Insulin Human Lispro (Insulin Lispro 100 Unit/Ml 3 Ml Kwikpen) 0 unit SUBCUT QIDACANDBED PRN; Protocol PRN Reason: Hyperglycemia Last Admin: 01/23/21 12:17 Dose: 12 unit Documented by: - Exam Quality Assessment: Reports: Supplemental Oxygen, DVT Prophylaxis (Lovenox) General: Reports: Alert, Oriented, Cooperative, No Acute Distress HEENT: Reports: Pupils Equal, Mucous Membr. Moist/Petty Neck: Reports: Supple, Trachea Midline Lungs: Reports: Normal Respiratory Effort, Crackles (Fine crackles noted to the bilateral bases) Cardiovascular: Reports: Regular Rate, Regular Rhythm, No Murmurs GI/Abdominal Exam: Normal Bowel Sounds, Soft, Non-Tender, No Distention (Male) Exam: Deferred Rectal (Males) Exam: Deferred Back Exam: Reports: Normal Inspection Extremities: Normal Inspection, Normal Range of Motion, Non-Tender, No Pedal Edema, Normal Capillary Refill Skin: Reports: Warm, Dry, Intact Neurological: Reports: No New Focal Deficit Psy/Mental Status: Reports: Alert, Normal Affect, Normal Mood <Baljinder Morris - Last Filed: 01/27/21 14:25> Discharge Summary - Referral to Home Health Primary Care Physician: PCP None - Discharge Diagnosis/Problem(s) (1) Acute respiratory failure due to COVID-19 SNOMED Code(s): 062379569 ICD Code: U07.1 - COVID-19; J96.00 - ACUTE RESPIRATORY FAILURE, UNSP W HYPOXIA OR HYPERCAPNIA Status: Acute Priority: High (2) Hypoxemia SNOMED Code(s): 599948544 ICD Code: R09.02 - HYPOXEMIA Status: Acute Priority: High (3) Pneumonia due to COVID-19 virus SNOMED Code(s): 015528433455023115 ICD Code: U07.1 - COVID-19; J12.82 - PNEUMONIA DUE TO CORONAVIRUS DISEASE 2019 Status: Acute Priority: High - Patient Summary/Data Consults: Consultations 01/22/21 13:31 Respiratory Care Assess and Treatment [CONS] Routine 01/23/21 12:43 Consult to Diabetic Nurse Specialist [CONS] Stat - Patient Data Vitals - Most Recent: Last Vital Signs Temp 36.4 C 01/26/21 15:02 Pulse 78 01/26/21 15:02 Resp 20 01/27/21 12:00 BP 118/68 01/26/21 15:02 Pulse Ox 93 L 01/27/21 12:00 I&O - Last 24 hours: Intake & Output 01/26/21 01/27/21 01/27/21 22:59 06:59 14:59 Intake Total 1240 500 400 Output Total 500 800 250 Balance 740 -300 150 Lab Results - Last 24 hrs: Laboratory Results - last 24 hr 01/26/21 01/26/21 01/27/21 Range/Units 17:12 20:53 05:30 WBC 6.00 (4.23-9.07) K/mm3 RBC 4.74 (4.63-6.08) M/mm3 Hgb 14.0 (13.7-17.5) gm/dl Hct 42.8 (40.1-51.0) % MCV 90.3 (79.0-92.2) fl MCH 29.5 (25.7-32.2) pg MCHC 32.7 (32.2-35.5) g/dl RDW Std Deviation 45.1 H (35.1-43.9) fL Plt Count 330 (163-337) K/mm3 MPV 9.3 L (9.4-12.3) fl Neut % (Auto) 70.6 H (34.0-67.9) % Lymph % (Auto) 13.8 L (21.8-53.1) % [place] % (Auto) 12.7 H (5.3-12.2) % Eos % (Auto) 2.7 (0.8-7.0) Baso % (Auto) 0.2 (0.1-1.2) % Neut # (Auto) 4.24 (1.78-5.38) K/mm3 Lymph # (Auto) 0.83 L (1.32-3.57) K/mm3 [place] # (Auto) 0.76 (0.30-0.82) K/mm3 Eos # (Auto) 0.16 (0.04-0.54) K/mm3 Baso # (Auto) 0.01 (0.01-0.08) K/mm3 Manual Slide Review Normal smear Sodium (136-145) mEq/L Potassium (3.5-5.1) mEq/L Chloride (98-107) mEq/L Carbon Dioxide (21-32) mEq/L Anion Gap (5-15) BUN (7-18) mg/dL Creatinine (0.7-1.3) mg/dL Est Cr Clr Drug Dosing mL/min Estimated GFR (MDRD) (>60) mL/min BUN/Creatinine Ratio (14-18) Glucose (70-99) mg/dL POC Glucose 130 H 168 H (70-99) mg/dL Calcium (8.5-10.1) mg/dL Magnesium (1.8-2.4) mg/dL Total Bilirubin (0.2-1.0) mg/dL AST (15-37) U/L ALT (16-63) U/L Alkaline Phosphatase (46-116) U/L C-Reactive Protein (<1.0) mg/dL Total Protein (6.4-8.2) g/dl Albumin (3.4-5.0) g/dl Globulin gm/dL Albumin/Globulin Ratio (1-2) 01/27/21 01/27/21 01/27/21 Range/Units 05:30 06:24 11:15 WBC (4.23-9.07) K/mm3 RBC (4.63-6.08) M/mm3 Hgb (13.7-17.5) gm/dl Hct (40.1-51.0) % MCV (79.0-92.2) fl MCH (25.7-32.2) pg MCHC (32.2-35.5) g/dl RDW Std Deviation (35.1-43.9) fL Plt Count (163-337) K/mm3 MPV (9.4-12.3) fl Neut % (Auto) (34.0-67.9) % Lymph % (Auto) (21.8-53.1) % [place] % (Auto) (5.3-12.2) % Eos % (Auto) (0.8-7.0) Baso % (Auto) (0.1-1.2) % Neut # (Auto) (1.78-5.38) K/mm3 Lymph # (Auto) (1.32-3.57) K/mm3 [place] # (Auto) (0.30-0.82) K/mm3 Eos # (Auto) (0.04-0.54) K/mm3 Baso # (Auto) (0.01-0.08) K/mm3 Manual Slide Review Sodium 136 (136-145) mEq/L Potassium 4.0 (3.5-5.1) mEq/L Chloride 105 (98-107) mEq/L Carbon Dioxide 25 (21-32) mEq/L Anion Gap 10.0 (5-15) BUN 17 (7-18) mg/dL Creatinine 0.6 L (0.7-1.3) mg/dL Est Cr Clr Drug Dosing 167.44 mL/min Estimated GFR (MDRD) > 60 (>60) mL/min BUN/Creatinine Ratio 28.3 H (14-18) Glucose 118 H (70-99) mg/dL POC Glucose 131 H 206 H (70-99) mg/dL Calcium 7.8 L (8.5-10.1) mg/dL Magnesium 2.0 (1.8-2.4) mg/dL Total Bilirubin 0.4 (0.2-1.0) mg/dL AST 34 (15-37) U/L ALT 130 H (16-63) U/L Alkaline Phosphatase 59 (46-116) U/L C-Reactive Protein <0.2 (<1.0) mg/dL Total Protein 5.1 L (6.4-8.2) g/dl Albumin 2.3 L (3.4-5.0) g/dl Globulin 2.8 gm/dL Albumin/Globulin Ratio 0.8 L (1-2) Med Orders - Current: Current Medications Acetaminophen (Acetaminophen 325 Mg Tab) 650 mg PO Q4H PRN PRN Reason: Pain (Mild 1-3)/fever Acetaminophen/Codeine Phosphate (Acetaminophen/Codeine 300-30 Mg Tab) 1 tab PO Q4H PRN PRN Reason: Cough Albuterol (Albuterol 6.7 Gm Inhaler) 0 gm INH Q2H PRN PRN Reason: sob/wheezing Last Admin: 01/26/21 13:47 Dose: 2 puff Documented by: Albuterol/Ipratropium (Albuterol/Ipratropium 3.0-0.5 Mg/3 Ml Neb Soln) 3 ml NEB Q4HRRT PRN PRN Reason: sob/wheezing Last Admin: 01/27/21 05:55 Dose: 3 ml Documented by: Benzonatate (Benzonatate 100 Mg Cap) 200 mg PO Q8H PRN PRN Reason: Cough Enoxaparin Sodium (Enoxaparin 40 Mg/0.4 Ml Syringe) 40 mg SUBCUT DAILY [facility] Last Admin: 01/27/21 10:07 Dose: 40 mg Documented by: Insulin Glargine (Insulin Glargine,Hum.Rec.Anlog 100 Unit/Ml 3 Ml Pen) 35 unit SUBCUT BEDTIME [facility] Last Admin: 01/26/21 21:37 Dose: 35 units Documented by: Insulin Glargine (Insulin Glargine,Hum.Rec.Anlog 100 Unit/Ml 3 Ml Pen) 35 unit SUBCUT BEDTIME Stop: 01/29/21 23:59 Insulin Human Lispro (Insulin Lispro 100 Unit/Ml 3 Ml Kwikpen) 0 unit SUBCUT QIDACANDBED [facility]; Protocol Last Admin: 01/27/21 11:42 Dose: 4 units Documented by: Insulin Human Lispro (Insulin Lispro 100 Unit/Ml 3 Ml Kwikpen) 0 unit SUBCUT QIDACANDBED Stop: 01/29/21 23:59 Ondansetron HCl (Ondansetron 4 Mg/2 Ml Sdv) 4 mg IV Q6H PRN PRN Reason: Nausea/Vomiting Discontinued Medications Dexamethasone (Dexamethasone 4 Mg Tab) 6 mg PO Q24H ALEX Stop: 01/24/21 14:01 Last Admin: 01/24/21 14:10 Dose: 6 mg Documented by: Tocilizumab 800 mg/ Sodium (Chloride) 100 mls @ 100 mls/hr IV ONETIME ONE Stop: 01/23/21 10:59 Last Admin: 01/23/21 11:49 Dose: 100 mls/hr Documented by: Influenza Virus Vaccine (Flu Vacc [id number] 36mos Up/Pf 60 Mcg/0.5 Ml Syringe) 60 mcg IM .ONCE ONE Stop: 01/22/21 12:31 Insulin Glargine (Insulin Glargine,Hum.Rec.Anlog 100 Unit/Ml 3 Ml Pen) 20 unit SUBCUT BEDTIME ALEX Last Admin: 01/23/21 21:53 Dose: 20 unit Documented by: Insulin Human Lispro (Insulin Lispro 100 Unit/Ml 3 Ml Kwikpen) 0 unit SUBCUT QIDACANDBED PRN; Protocol PRN Reason: Hyperglycemia Last Admin: 01/23/21 12:17 Dose: 12 unit Documented by: - Free Text/Narrative Note: I have seen and examined the patient independently of BENNETT Garner, and I have discussed the case with her. I have reviewed and agree with the plan of care as outlined by her. Please see orders.
== END 2021-01-27 12:50 | disposition home or self-care (01) | DRG 177 ==
LOC: JD.MS 11:41
PROVIDERS: ADMIT Family Medicine; ATTEND Family Medicine
PROC: 3E0DX3Z Introduction of Anti-inflammatory into Mouth and Pharynx, External Approach (ICD-10-PCS; 2021-01-22)
PROC: 5A0945A Assistance with Respiratory Ventilation, 24-96 Consecutive Hours, High Flow/Velocity Cannula (ICD-10-PCS; 2021-01-22)
PROC: XW033H5 Introduction of Tocilizumab into Peripheral Vein, Percutaneous Approach, New Technology Group 5 (ICD-10-PCS; principal; 2021-01-23)
DX: U07.1 COVID-19 (principal); J96.01 Acute respiratory failure with hypoxia; J12.82 Pneumonia due to coronavirus disease 2019; E66.9 Obesity, unspecified; Z68.27 Body mass index [BMI] 27.0-27.9, adult
CPT/HCPCS: 36415; 71045; 71045-26; 80048; 80053; 82947; 83036; 83735; 84100; 85025; 85379; 86140; 93005; 94640; 94762; A9270-GY; J1650; J1815; J7620-GY; J8540; M0249; Q0249